=== PATIENT | female | born 1930 | race Caucasian/White ===

== ENCOUNTER 2016-10-31 23:21 | Inpatient (IN) | payer MEDICARE, BC, OTHER ==
--- NOTE | 2016-10-31 23:40 | ER Document Report ---
ED General - General Stated Complaint: CHEST PAIN Time seen by provider: 23:35 Notes: Patient is an 86-year-old female that comes emergency department for complaint of not feeling well for about 2 days and chest pain that started at about 10 PM tonight. Patient states the pain is over the left side near her armpit and is worse when she presses on it or when she moves. Patient was given 324 mg of aspirin and 1 nitroglycerin by EMS and route. Patient denies any radiations of pain, denies shortness of breath, denies nausea or vomiting, denies injury to the area. Patient denies fever, cough, shortness of breath, headache. Patient reports her only past medical history is stated to diabetes, she states she is taking her "insulin pill". She lives at home with her . TRAVEL OUTSIDE OF THE [place] IN LAST 30 DAYS: No - Related Data Allergies/Adverse Reactions: clopidogrel bisulfate [From Plavix] Allergy (Verified 09/18/14 23:07) Past Medical History - General Information source: Patient, Relative, Emergency Med Personnel - Social History Smoking Status: Never Smoker Frequency of alcohol use: None Drug Abuse: None Lives with: Family Family History: Reviewed & Not Pertinent, Other Endocrine Medical History: Reports: Hx Diabetes Mellitus Type 2 - Immunizations Hx Diphtheria, Pertussis, Tetanus Vaccination: Yes Review of Systems - Review of Systems Constitutional: See HPI EENT: No symptoms reported Cardiovascular: See HPI Respiratory: No symptoms reported Gastrointestinal: No symptoms reported Genitourinary: No symptoms reported Female Genitourinary: No symptoms reported Musculoskeletal: No symptoms reported Skin: No symptoms reported Hematologic/Lymphatic: No symptoms reported Neurological/Psychological: No symptoms reported Physical Exam - Vital signs Vitals: Pulse Ox 98 11/01/16 01:52 Interpretation: Normal - General General appearance: Appears well, Alert In distress: None - patient alert, well appearing - HEENT Head: Normocephalic, Atraumatic Eyes: Normal Conjunctiva: Normal Extraocular movements intact: Yes Eyelashes: Normal Pupils: PERRL Nasal: Normal Mouth/Lips: Normal Mucous membranes: Dry - dry lips and mucous membrane Pharynx: Normal Neck: Normal - Respiratory Respiratory status: No respiratory distress Chest status: Tender - specific reproduceable point tenderness over the lateral left pectoralis/breast and near the mid axillary region at ribs 3-4 Breath sounds: Normal Chest palpation: Normal - Cardiovascular Rhythm: Regular. No: Tachycardia Heart sounds: Normal auscultation, S1 appreciated, S2 appreciated Murmur: No - Abdominal Inspection: Normal Distension: No distension Bowel sounds: Normal Tenderness: Nontender. No: Tender, Guarding - Back Back: Normal, Nontender. No: Tender - Extremities General upper extremity: Normal inspection, Nontender, Normal color, Normal ROM , Normal temperature General lower extremity: Normal inspection, Nontender, Normal color, Normal ROM , Normal temperature, Normal weight bearing. No: Jean-Paul's sign - Neurological Neuro grossly intact: Yes Cognition: Normal Orientation: AAOx4 Allison Coma Scale Eye Opening: Spontaneous Allison Coma Scale Verbal: Oriented [place] Coma Scale Motor: Obeys Commands Allison Coma Scale Total: 15 Speech: Normal Motor strength normal: LUE, RUE, LLE, RLE Sensory: Normal - Psychological Associated symptoms: Normal affect, Normal mood - Skin Skin Temperature: Warm Skin Moisture: Dry Skin Color: Normal Course - Re-evaluation Re-evalutation: EKG shows sinus rhythm with no T wave inversions or ST segment abnormalities in consecutive leads, V2 with slight and borderline ST elevation, no reciprocal changes. Normal axis. Anterior T-waves somewhat pointed. Workup pending. 11/01/16 01:00 arrived, he states that patient has been lying in bed and not feeling well for about 2 days, however he denies vomiting, diarrhea, cough, or any other obvious symptoms. Her blood sugar has not been checked, her temperature has not been checked. Patient had not begun complaining of chest pain until tonight. Delay in obtaining blood due to difficulty in drawing patient's blood. CBC unremarkable, chemistry shows marked hyperglycemia at greater than 700, bicarbonate is normal, BUN is slightly elevated. Sodium and chloride are low, patient receiving IV fluid bolus, will place on insulin drip. Troponin indeterminate, will cycle. Patient has very specific, reproducible chest pain in the left lateral pectoralis/axillary area, denies any other symptoms, she does requests something for pain because the pain is intermittent, sharp, and worse with movement. Discussed with Dr. Song, recommends admission. went home, I called him, he states that he checked and they are actually out of insulin and she has not received any for a couple of days at least. 11/01/16 02:40 Called and spoke with patient's primary care provider, Dr. Pearl, he will admit to the hospital. - Vital Signs Vital signs: Temp Pulse Resp BP Pulse Ox 98 11/01/16 01:52 - Laboratory Result Diagrams: 11/01/16 01:05 11/01/16 01:05 Laboratory results interpreted by me: 11/01/16 11/01/16 01:05 01:05 Lymphocytes % 12.3 L Sodium 131.3 L Chloride 91 L BUN 22 H Est GFR ( Amer) 57 L Est GFR (Non-Af Amer) 47 L Glucose 734 H* Discharge - Discharge Clinical Impression: Weakness, Chest wall pain Hyperglycemia due to type 2 diabetes mellitus Qualifiers: Diabetes mellitus care home insulin use: unspecified care home insulin use status Qualified Code(s): E11.65 - Type 2 diabetes mellitus with hyperglycemia Chest pain Qualifiers: Chest pain type: unspecified Qualified Code(s): R07.9 - Chest pain, unspecified Condition: Stable Disposition: ADMITTED INPATIENT Admitting Provider: Dae Unit Admitted: Telemetry
[2016-11-01 01:28] LABS: ALANINE AMINOTRANSFERASE 25 U/L (9-52); ALBUMIN 3.7 g/dL (3.5-5.0); ALKALINE PHOSPHATASE 69 U/L (38-126); ANION GAP 11 (5-19); ASPARTATE AMINO TRANSFERASE 26 U/L (14-36); BILIRUBIN,TOTAL 0.8 mg/dL (0.2-1.3); BLOOD UREA NITROGEN 22 mg/dL (7-20); CALCIUM 9.8 mg/dL (8.4-10.2); CARBON DIOXIDE 29 mmol/L (22-30); CHLORIDE 91 mmol/L (98-107); CREATINE KINASE 103 U/L (30-135); CREATININE RESULT 1.09 mg/dL (0.52-1.25); POTASSIUM 4.6 mmol/L (3.6-5.0); SODIUM 131.3 mmol/L (137-145); TOTAL PROTEIN 6.9 g/dL (6.3-8.2)
[2016-11-01 01:32] LABS: ABSOLUTE BASOPHILS # (AUTO) 0.1 10^3/uL (0.0-0.2); ABSOLUTE LYMPHOCYTES (AUTO) 1.1 10^3/uL (0.5-4.7); ABSOLUTE MONOCYTES (AUTO) 0.8 10^3/uL (0.1-1.4); ABSOLUTE NEUT (AUTO) 6.8 10^3/uL (1.7-8.2); BASOPHILS % (AUTO) 0.8 % (0-2); EOSINOPHILS % (AUTO) 0.5 % (0-6); HEMOGLOBIN 14.4 g/dL (12.0-15.5); HGB HCT DIFFERENCE -0.8; LYMPHOCYTES % (AUTO) 12.3 % (13-45); MEAN CORPUSCULAR HEMOGLOBIN 29.4 pg (27.0-33.4); MEAN CORPUSCULAR HGB CONC 32.7 g/dL (32.0-36.0); MEAN CORPUSCULAR VOLUME 90 fl (80-97); MONOCYTES % (AUTO) 8.9 % (3-13); RED BLOOD COUNT 4.89 10^6/uL (3.72-5.28); RED CELL DISTRIBUTION WIDTH 13.3 % (11.5-14.0); SEGMENTED NEUTROPHILS % (AUTO) 77.5 % (42-78); WHITE BLOOD COUNT 8.8 10^3/uL (4.0-10.5)
[2016-11-01 01:39] LABS: GLUCOSE 734 mg/dL (75-110)
[2016-11-01 01:41] LABS: CREATINE KINASE MB 2.64 ng/mL (<4.55)
[2016-11-01 01:49] LABS: TROPONIN I 0.052 ng/mL
[2016-11-01] MEDS ORDERED: NORMAL SALINE 1000 ML 1,000 ML IV ONE (02:02)
[2016-11-01] MEDS ORDERED: NORMAL SALINE 100 ML with INSULIN REGULAR, HUMAN 100 UNIT IV PRN ×2 (02:04)
[2016-11-01] MEDS ORDERED: INSULIN REG, HUMAN 100 UNIT/ML 3 ML VIAL (PYX) ONE (02:24)
[2016-11-01] MEDS ORDERED: MORPHINE SULFATE 10 MG/ML INJ IV ONE ×2 (02:42→05:02)
[2016-11-01] MEDS ORDERED: ONDANSETRON HCL INJ/PF 4 MG/2 ML SDV IV ONE (02:43)
[2016-11-01 05:11] LABS: APPEARANCE,URINE CLEAR; BILIRUBIN,URINE NEGATIVE (NEGATIVE); GLUCOSE, URINE >=500 mg/dL (NEGATIVE); KETONES,URINE TRACE mg/dL (NEGATIVE); LEUKOCYTE ESTERASE,URINE NEGATIVE (NEGATIVE); NITRITE,URINE NEGATIVE (NEGATIVE); PROTEIN,URINE 30 mg/dL (NEGATIVE); URINE SPECIFIC GRAVITY 1.027; UROBILINOGEN,URINE NEGATIVE mg/dL (<2.0)
[2016-11-01] MEDS ORDERED: ENOXAPARIN SODIUM INJ 30 MG/0.3 ML DISP.SYRIN SUBCUT SCH (08:00)
[2016-11-01] MEDS ORDERED: ENOXAPARIN SODIUM INJ 40 MG/0.4 ML DISP.SYRIN SUBCUT SCH (08:00)
[2016-11-01] MEDS ORDERED: DEXTROSE 50%-WATER 25 GM/50 ML DISP.SYRIN IV PRN ×2 (08:19)
[2016-11-01] MEDS ORDERED: GLUCAGON,HUMAN RECOMB 1 MG INJ IM PRN (08:19)
[2016-11-01] MEDS ORDERED: DEXTROSE 40% GEL 15 GM TUBE PO PRN ×2 (08:19)
--- NOTE | 2016-11-01 08:20 | EKG REPORT ---
SEVERITY:- ABNORMAL ECG - SINUS RHYTHM CONSIDER ANTEROSEPTAL INFARCT : Confirmed by: Beto Rios MD 01-Nov-2016 08:19:59
--- NOTE | 2016-11-01 08:20 | EKG REPORT ---
SEVERITY:- ABNORMAL ECG - SINUS RHYTHM CONSIDER ANTEROSEPTAL INFARCT : Confirmed by: Beto Rios MD 01-Nov-2016 08:20:07
[2016-11-01 08:44] LABS: CREATINE KINASE MB 3.13 ng/mL (<4.55); TROPONIN I 0.063 ng/mL
[2016-11-01] MEDS: FAMOTIDINE INJ/PF 20 MG/2 ML SDV IV SCH ×2 (11:07→21:58)
[2016-11-01] MEDS: INSULIN LISPRO 100 UNIT/ML 3 ML VIAL SUBCUT PRN ×3 (11:46→21:55)
[2016-11-01] MEDS: NORMAL SALINE 1000 ML 1,000 ML IV PRN (11:46)
--- NOTE | 2016-11-01 12:36 | PDOC CONSULTATION ---
Consultation Consult Date: 11/01/16 Attending physician:: MARVEL JOE Consult reason:: Chest pain History of Present Illness Admission Date/PCP: 11/01/16 07:19 Patient complains of: Chest pain History of Present Illness: Patient is an 86-year-old female admitted through the emergency department for complaint of not feeling well for about 2 days and chest pain that started at about 10 PM last night. Patient states the pain is over the left side near her armpit and is worse when she presses on it or when she moves. Patient was given 324 mg of aspirin and 1 nitroglycerin by EMS and route. Patient denies any radiations of pain, denies shortness of breath, denies nausea or vomiting, denies injury to the area. Patient denies fever, cough, shortness of breath, headache. Patient reports her only past medical history is stated to diabetes, she states she is taking her "insulin pill". She lives at home with her . Patient denied any ongoing chest pain. Patient however seems to be a poor historian. She has noted some memory problems. Past Medical History Endocrine Medical History: Reports: Diabetes Mellitus Type 2 Social History Information Source: Patient Lives with: Family Smoking Status: Never Smoker Frequency of Alcohol Use: None Drugs: None - Advance Directive Resuscitation Status: Full Code Surrogate healthcare decision maker:: Patient's Family History Family History: Reviewed & Not Pertinent, Other Parental Family History Reviewed: Yes Children Family History Reviewed: Yes Sibling(s) Family History Reviewed.: Yes - Negative for premature coronary artery disease or sudden cardiac in the family amongst first degree relatives. Medication/Allergy Home Medications: Amlodipine Besylate [Norvasc 5 mg Tablet] 5 mg PO QHS 11/01/16 Aspirin [Aspirin 81 mg Chewable Tablet] 81 mg PO DAILY 11/01/16 Cholecalciferol (Vitamin D3) [Vitamin D3] 1,000 mg PO DAILY 11/01/16 Ferrous Sulfate [Feosol 325 mg Tablet] 325 mg PO DAILY 11/01/16 Insulin Aspart [Novolog Flexpen] 0 units SQ AC 11/01/16 Insulin Detemir [Levemir Flextouch] 10 units SQ DAILY 11/01/16 Levothyroxine Sodium [Synthroid 0.1 mg Tablet] 0.1 mg PO QAM 11/01/16 Propranolol HCl [Propranolol HCl ER] 80 mg PO DAILY 11/01/16 Rosuvastatin Calcium [Crestor 10 mg Tablet] 10 mg PO DAILY 11/01/16 Sitagliptin Phos/Metformin HCl [Janumet 50-1,000 mg Tablet] 1 tab PO BID Valsartan [Diovan 80 mg Tablet] 80 mg PO Q12 11/01/16 Allergies/Adverse Reactions: clopidogrel bisulfate [From Plavix] Allergy (Verified 09/18/14 23:07) Review of Systems Review of Systems: Please see history of present illness and past medical history as wall. Constitutional: No fever or chills reported. Generally not feeling well for last few days. Head : No recent chronic headaches, recent head injury. Eyes: No recent eye pain, diplopia, redness, discharge, acute visual changes. Ears: No recent chronic ear pain, acute hearing loss, ear discharge. Oral cavity: No recent ulcerations, bleeding, oral cavity discomfort. Neck: No recent acute neck pain reported. Hematologic: No recent easy bruising or bleeding or hematologic malignancy reported. Lymphatic: No recent lymphatic malignancy, chronic lymphadenopathy reported yet Cardiovascular system review: See history of present illness. Respiratory system review: No recent chronic cough, hemoptysis, blood clots in the lungs reported. Mild Shortness of breath on exertion Gastrointestinal system review: Negative for any recent acute or chronic abdominal pain, hematemesis, melena, recent change in bowel habits. Genitourinary system review: No recent acute or chronic hematuria, flank pain, UTI etc. reported. Skin system review: Negative for any recent abnormal bruising, no rash, no pruritus reported. Neurologic: No prior history of strokes, mini strokes, seizure disorder. Psychologic: No history of major psychosis or depression reported. Musculoskeletal: Minor aches and pains reported. No acute joint swelling reported. Endocrine: No recent polyuria, polydipsia, recent heat or cold intolerance. Physical Exam Vital Signs: Temp Pulse Resp BP Pulse Ox 14 135/85 H 99 11/01/16 12:00 11/01/16 12:00 11/01/16 12:00 Exam: GENERAL: well-nourished and in no acute distress. Alert and oriented 2 HEAD: Atraumatic, normocephalic. EYES: Pupils equal round and reactive to light, extraocular movements intact, sclera anicteric, conjunctiva are normal. ENT: TMs normal, nares patent, oropharynx clear without exudates. Moist mucous membranes. No oral ulcerations or bleeding gums noted NECK: supple without lymphadenopathy. Trachea is central. No cervical or axillary lymphadenopathy noted. Carotids are 2+, JVD WNL LUNGS: Respiration seems nonlabored, no significant accessory muscle action noted. Breath sounds clear to auscultation bilaterally and equal. No wheezes rales or rhonchi. No significant dullness noted on percussion. CHEST: Palpation of the chest wall shows left lateral chest wall tenderness but no other abnormalities. 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 ABDOMEN: Soft, no significant tenderness appreciated, normoactive bowel sounds. No guarding, no rebound. No rigidity noted . No masses appreciated. EXTREMITIES: Pedal pulses are 1-2+, no calf tenderness noted. No clubbing or cyanosis.trace to 1+ pedal edema noted NEUROLOGICAL: Focused neurological exam showed no significant neurologic deficit. Normal speech, no focal weakness appreciated. PSYCH: Normal mood, normal affect. Judgment and insight not checked SKIN: No significant ecchymosis, rash, ulcerations or signs of pruritus noted. MUSCULOSKELETAL EXAM: No significant joint swelling noted. Results Laboratory Results: 11/01/16 11/01/16 08:05 08:05 Creatine Kinase 150 H CK-MB (CK-2) 3.13 Troponin I 0.063 EKG Comments: Initial EKG showed suggestive of anteroseptal infarct, age indeterminate. Subsequent EKG same. No acute ST-T segment changes noted on second EKG. On first and borderline ST elevation in lead V1 and V2. Impressions: Chest X-Ray 10/31/16 23:38 IMPRESSION: NO ACUTE CARDIOPULMONARY PROCESS. NO SIGNIFICANT CHANGE FROM PRIOR STUDY. Assessment & Plan - Diagnosis (1) Chest pain Qualifiers: Chest pain type: unspecified Qualified Code(s): R07.9 - Chest pain, unspecified Is this a current diagnosis for this admission?: Yes (2) Diabetes type 2, uncontrolled Qualifiers: Diabetes mellitus complication status: with unspecified complications Is this a current diagnosis for this admission?: Yes (3) Hypertension Qualifiers: Hypertension type: essential hypertension Qualified Code(s): I10 - Essential (primary) hypertension Is this a current diagnosis for this admission?: Yes (4) Dyslipidemia Is this a current diagnosis for this admission?: Yes - Notes Notes: Chest pain: History is somewhat atypical. Patient does have some chest wall tenderness. Cardiac enzymes are noted to be negative for her age. At this point recommend optimizing medical therapy for presumed underlying CAD. A nuclear stress test can be considered as an outpatient. Will order and 2-D echo for risk stratification. Currently patient seems to be adequately treated. Diabetes: Currently uncontrolled with initial presentation with hyperglycemia and subsequently hypoglycemia. We will leave management to primary care M.D. Hypertension: Currently stable. Continue valsartan therapy. Dyslipidemia: Agree with Crestor therapy continue with it. Addendum: Patient was seen again at around 6 PM. She was noted to have positive troponin I, this was called to be after which I went up to see the patient. Patient started on beta maame by Dr. AROLDO CANO MD. Discussed with Dr. Joe. Have placed patient on Ranexa and also Lovenox at 0.75 mg per KG body weight twice a day. [place] that based on patient comorbid diagnosis of underlying dementia, difficult to control blood sugar, it was felt that we'll just optimize medical management. Also of note, elevated troponin I could be related to type II myocardial infarctions brought on by severe hyperglycemia and also severe hypoglycemia. However one cannot be very sure as patient is likely to have underlying CAD as well. - Time Time Spent: 50 to 70 Minutes - CODE STATUS was discussed, patient remains full code. Surrogate decision-maker patient's . Multiple medical problems were addressed.More than 50% of the time spent coordinating care, discussing management plans with involved caregivers. Management plans discussed with involved personnels. Medical decision making was of moderate complexity. Medications reviewed and adjusted accordingly: Yes
[2016-11-01 12:57] LABS: ANION GAP 12 (5-19); BLOOD UREA NITROGEN 20 mg/dL (7-20); CALCIUM 9.2 mg/dL (8.4-10.2); CARBON DIOXIDE 28 mmol/L (22-30); CHLORIDE 97 mmol/L (98-107); CREATINE KINASE 152 U/L (30-135); CREATININE RESULT 1.19 mg/dL (0.52-1.25); GLUCOSE 191 mg/dL (75-110); POTASSIUM 3.8 mmol/L (3.6-5.0); SODIUM 136.9 mmol/L (137-145)
--- NOTE | 2016-11-01 13:28 | PDOC H&P ---
History of Present Illness Admission Date/PCP: 11/01/16 07:19 History of Present Illness: Patient is an 86-year-old female admitted through the emergency department for complaint of not feeling well for about 2 days and chest pain that started at about 10 PM last night. Patient states the pain is over the left side near her armpit and is worse when she presses on it or when she moves. Patient was given 324 mg of aspirin and 1 nitroglycerin by EMS and route. Patient denies any radiations of pain, denies shortness of breath, denies nausea or vomiting, denies injury to the area. Patient denies fever, cough, shortness of breath, headache. Patient reports her only past medical history is stated to diabetes, she states she is taking her "insulin pill". She lives at home with her . Patient denied any ongoing chest pain. Patient however seems to be a poor historian. She has noted some memory problems. Past Medical History Endocrine Medical History: Reports: Diabetes Mellitus Type 2 Psychiatric Medical History: Reports: Dementia Social History Lives with: Family Smoking Status: Never Smoker Frequency of Alcohol Use: None Drugs: None - Advance Directive Resuscitation Status: Full Code Family History Family History: Reviewed & Not Pertinent, Other Parental Family History Reviewed: Yes Children Family History Reviewed: Yes Sibling(s) Family History Reviewed.: Yes Medication/Allergy Home Medications: Amlodipine Besylate [Norvasc 5 mg Tablet] 5 mg PO QHS 11/01/16 Aspirin [Aspirin 81 mg Chewable Tablet] 81 mg PO DAILY 11/01/16 Cholecalciferol (Vitamin D3) [Vitamin D3] 1,000 mg PO DAILY 11/01/16 Ferrous Sulfate [Feosol 325 mg Tablet] 325 mg PO DAILY 11/01/16 Insulin Aspart [Novolog Flexpen] 0 units SQ AC 11/01/16 Insulin Detemir [Levemir Flextouch] 10 units SQ DAILY 11/01/16 Levothyroxine Sodium [Synthroid 0.1 mg Tablet] 0.1 mg PO QAM 11/01/16 Propranolol HCl [Propranolol HCl ER] 80 mg PO DAILY 11/01/16 Rosuvastatin Calcium [Crestor 10 mg Tablet] 10 mg PO DAILY 11/01/16 Sitagliptin Phos/Metformin HCl [Janumet 50-1,000 mg Tablet] 1 tab PO BID Valsartan [Diovan 80 mg Tablet] 80 mg PO Q12 11/01/16 Allergies/Adverse Reactions: clopidogrel bisulfate [From Plavix] Allergy (Verified 09/18/14 23:07) Review of Systems Constitutional: ABSENT: chills, fever(s), headache(s), weight gain, weight loss Eyes: ABSENT: visual disturbances Ears: ABSENT: hearing changes Cardiovascular: PRESENT: chest pain. ABSENT: dyspnea on exertion, edema, orthropnea, palpitations Respiratory: ABSENT: cough, hemoptysis Gastrointestinal: ABSENT: abdominal pain, constipation, diarrhea, hematemesis, hematochezia, nausea, vomiting Genitourinary: ABSENT: dysuria, hematuria Musculoskeletal: ABSENT: joint swelling Integumentary: ABSENT: rash, wounds Neurological: ABSENT: abnormal gait, abnormal speech, confusion, dizziness, focal weakness, syncope Psychiatric: ABSENT: anxiety, depression, homidical ideation, suicidal ideation Endocrine: ABSENT: cold intolerance, heat intolerance, menstrual abnormalities, polydipsia, polyuria Hematologic/Lymphatic: ABSENT: easy bleeding, easy bruising, lymphadenopathy Physical Exam Vital Signs: Temp Pulse Resp BP Pulse Ox 98.3 F 14 135/85 H 97 11/01/16 12:28 11/01/16 12:00 11/01/16 12:00 11/01/16 12:30 General appearance: PRESENT: no acute distress, well-developed, well-nourished Head exam: PRESENT: atraumatic, normocephalic Eye exam: PRESENT: conjunctiva pink, EOMI, PERRLA. ABSENT: scleral icterus Ear exam: PRESENT: normal external ear exam Mouth exam: PRESENT: moist, tongue midline Neck exam: PRESENT: full ROM. ABSENT: carotid bruit, JVD, lymphadenopathy, thyromegaly Cardiovascular exam: PRESENT: RRR. ABSENT: diastolic murmur, rubs, systolic murmur Pulses: PRESENT: normal dorsalis pedis pul, +2 pedal pulses bilateral Vascular exam: PRESENT: normal capillary refill GI/Abdominal exam: PRESENT: normal bowel sounds, soft. ABSENT: distended, guarding, mass, organolmegaly, rebound, tenderness Rectal exam: PRESENT: deferred Neurological exam: PRESENT: alert, awake, oriented to place, CN II-XII grossly intact. ABSENT: motor sensory deficit Additional comments: Patient has significant underlying dementia Psychiatric exam: PRESENT: appropriate affect, normal mood. ABSENT: homicidal ideation, suicidal ideation Skin exam: PRESENT: dry, intact, warm. ABSENT: cyanosis, rash Results Laboratory Results: 11/01/16 12:22 11/01/16 12:22 Sodium 136.9 L Potassium 3.8 Chloride 97 L Carbon Dioxide 28 Anion Gap 12 BUN 20 Creatinine 1.19 Est GFR ( Amer) 52 L Est GFR (Non-Af Amer) 43 L Glucose 191 H Calcium 9.2 11/01/16 11/01/16 11/01/16 08:05 08:05 12:22 Creatine Kinase 150 H 152 H CK-MB (CK-2) 3.13 Troponin I 0.063 Impressions: Chest X-Ray 10/31/16 23:38 IMPRESSION: NO ACUTE CARDIOPULMONARY PROCESS. NO SIGNIFICANT CHANGE FROM PRIOR STUDY. Assessment & Plan - Diagnosis (1) Chest pain Qualifiers: Chest pain type: unspecified Qualified Code(s): R07.9 - Chest pain, unspecified Is this a current diagnosis for this admission?: YesPlan: We will get the cardiology consult and a cardiac enzymes every 63 (2) Diabetes type 2, uncontrolled Qualifiers: Diabetes mellitus complication status: with unspecified complications Is this a current diagnosis for this admission?: YesPlan: Patient is very noncompliance and the patient is also very noncompliant and very extensive discussions with the patient's family including the all the son and patient was also put in a chcf but patient's family does not want to keep in a chcf and according to the family patient's blood sugar always running high and I believe because of the patient is not taking medicines as prescribed and discussed the reasons and also patient is not watching the diet to (3) Dementia Qualifiers: Dementia type: unspecified type Dementia behavioral disturbance: without behavioral disturbance Qualified Code(s): F03.90 - Unspecified dementia without behavioral disturbance Is this a current diagnosis for this admission?: YesPlan: I think is significantly getting more worse (4) Hyperosmolar non-ketotic state in patient with type 2 diabetes mellitus Is this a current diagnosis for this admission?: YesPlan: Due to significant of the noncompliant will cut down the insulin drip to the sliding and the Levemir discussed with the ER nurse (5) Hypertension Qualifiers: Hypertension type: essential hypertension Qualified Code(s): I10 - Essential (primary) hypertension Is this a current diagnosis for this admission?: YesPlan: Stable (6) Hypothyroidism Is this a current diagnosis for this admission?: YesPlan: Check a TSH - Time Time Spent: 50 to 70 Minutes Medications reviewed and adjusted accordingly: Yes Anticipated discharge: Home - Inpatient Certification Medical Necessity: Significant Comorbidiites Make Outpatient Treatment Too Risky , Need For IV Fluids Post Hospital Care: D/C Language Specialist Documentation - Plan Summary Plan Summary: We will put the patient's back on a sliding scale and the regular insulin and current p.o. medication consult to cardiology. Discussed with the . As per note that patient's family we discussed extensively in the and they do not want to put back the patient in the chcf and will discharge the patient' s back [place] once again stable. Will get the physical therapy evaluation and also get a urine culture to rule out any urinary tract infection
[2016-11-01 16:30] LABS: CREATINE KINASE MB 6.31 ng/mL (<4.55)
[2016-11-01 16:44] LABS: TROPONIN I 0.625 ng/mL
[2016-11-01] MEDS: METFORMIN HCL 500 MG TABLET PO SCH (16:48)
[2016-11-01] MEDS: SITAGLIPTIN PHOSPHATE 50 MG TABLET PO SCH (16:48)
[2016-11-01] MEDS: METOPROLOL TARTRATE 25 MG TABLET PO SCH (17:52)
[2016-11-01] MEDS ORDERED: ASPIRIN 325 MG TABLET PO ONE (18:00)
[2016-11-01] MEDS ORDERED: (PENDING PHARMACY ID) (Sitagliptin Phos/Metformin Hcl [Janumet 50-1,000 Mg Tablet] 1 TAB) PO SCH (18:00)
[2016-11-01 20:32] LABS: CREATINE KINASE MB 7.91 ng/mL (<4.55)
[2016-11-01 20:53] LABS: TROPONIN I 0.92 ng/mL
[2016-11-01] MEDS: AMLODIPINE BESYLATE 5 MG TABLET PO SCH (21:53)
[2016-11-01] MEDS: ATORVASTATIN CALCIUM 20 MG TABLET PO SCH (21:54)
[2016-11-01] MEDS: RANOLAZINE 500 MG TAB.SR.12H PO SCH (21:54)
[2016-11-01] MEDS: ENOXAPARIN SODIUM INJ 40 MG/0.4 ML DISP.SYRIN SUBCUT SCH (22:00)
[2016-11-01] MEDS ORDERED: VALSARTAN 80 MG TABLET PO SCH (22:00)
[2016-11-01 23:48] LABS: APPEARANCE,URINE SLIGHTLY-CLOUDY; BILIRUBIN,URINE NEGATIVE (NEGATIVE); GLUCOSE, URINE >=500 mg/dL (NEGATIVE); KETONES,URINE TRACE mg/dL (NEGATIVE); LEUKOCYTE ESTERASE,URINE NEGATIVE (NEGATIVE); NITRITE,URINE NEGATIVE (NEGATIVE); PROTEIN,URINE 30 mg/dL (NEGATIVE); URINE SPECIFIC GRAVITY 1.017; UROBILINOGEN,URINE NEGATIVE mg/dL (<2.0)
[2016-11-02] MEDS: NORMAL SALINE 1000 ML 1,000 ML IV PRN (00:48)
[2016-11-02] MEDS: METOPROLOL TARTRATE 25 MG TABLET PO SCH ×2 (05:07→16:58)
[2016-11-02 05:15] LABS: ABSOLUTE BASOPHILS # (AUTO) 0.1 10^3/uL (0.0-0.2); ABSOLUTE EOSINOPHILS # (AUTO) 0.1 10^3/uL (0.0-0.6); ABSOLUTE LYMPHOCYTES (AUTO) 1.4 10^3/uL (0.5-4.7); ABSOLUTE MONOCYTES (AUTO) 0.6 10^3/uL (0.1-1.4); ABSOLUTE NEUT (AUTO) 5.3 10^3/uL (1.7-8.2); BASOPHILS % (AUTO) 1.1 % (0-2); EOSINOPHILS % (AUTO) 1.5 % (0-6); HEMATOCRIT 37.4 % (36.0-47.0); HEMOGLOBIN 12.7 g/dL (12.0-15.5); HGB HCT DIFFERENCE 0.7; LYMPHOCYTES % (AUTO) 19.1 % (13-45); MEAN CORPUSCULAR VOLUME 88 fl (80-97); MONOCYTES % (AUTO) 8.3 % (3-13); RED BLOOD COUNT 4.24 10^6/uL (3.72-5.28); RED CELL DISTRIBUTION WIDTH 13.4 % (11.5-14.0); WHITE BLOOD COUNT 7.6 10^3/uL (4.0-10.5)
[2016-11-02 05:29] LABS: ANION GAP 7 (5-19); BLOOD UREA NITROGEN 20 mg/dL (7-20); CALCIUM 8.7 mg/dL (8.4-10.2); CARBON DIOXIDE 23 mmol/L (22-30); CHLORIDE 104 mmol/L (98-107); CREATININE RESULT 1.18 mg/dL (0.52-1.25); GLUCOSE 288 mg/dL (75-110); POTASSIUM 4.5 mmol/L (3.6-5.0); SODIUM 133.5 mmol/L (137-145)
[2016-11-02] MEDS: LEVOTHYROXINE SODIUM 0.1 MG TABLET PO SCH (08:27)
[2016-11-02] MEDS: INSULIN LISPRO 100 UNIT/ML 3 ML VIAL SUBCUT PRN ×2 (08:27→12:19)
--- NOTE | 2016-11-02 08:44 | EKG REPORT ---
SEVERITY:- ABNORMAL ECG - SINUS RHYTHM LOW VOLTAGE IN FRONTAL LEADS CONSIDER ANTEROSEPTAL INFARCT : Confirmed by: Beto Rios MD 02-Nov-2016 08:44:26
[2016-11-02] MEDS ORDERED: (PENDING PHARMACY ID) (Propranolol Hcl [Propranolol Hcl Er] 80 MG) PO SCH (10:00)
[2016-11-02] MEDS ORDERED: INSULIN DETEMIR 100 UNIT/ML 3 ML PEN SUBCUT SCH (10:00)
[2016-11-02] MEDS: METFORMIN HCL 500 MG TABLET PO SCH ×2 (10:05→16:58)
[2016-11-02] MEDS: ASPIRIN 81 MG TABLET, CHEWABLE PO SCH (10:05)
[2016-11-02] MEDS: ENOXAPARIN SODIUM INJ 40 MG/0.4 ML DISP.SYRIN SUBCUT SCH ×2 (10:06→21:11)
[2016-11-02] MEDS: VALSARTAN 80 MG TABLET PO SCH (10:06)
[2016-11-02] MEDS: SITAGLIPTIN PHOSPHATE 50 MG TABLET PO SCH ×2 (10:06→16:58)
[2016-11-02] MEDS: RANOLAZINE 500 MG TAB.SR.12H PO SCH ×2 (10:06→21:10)
[2016-11-02] MEDS: FAMOTIDINE INJ/PF 20 MG/2 ML SDV IV SCH ×2 (10:06→21:11)
[2016-11-02] MEDS ORDERED: INSULIN DETEMIR 100 UNIT/ML 3 ML PEN SUBCUT ONE (12:30)
--- NOTE | 2016-11-02 13:31 | PDOC PROGRESS REPORT ---
Subjective Progress Note for:: 11/02/16 Subjective:: Patient seems to be doing better with gradual improvement. Pt is denying any chest arm or neck discomfort. Patient denying any PND, orthopnea. Patient denied any sustained palpitations, dizziness, syncope, near syncope. Patient denying any fever chills. Patient denying any other significant discomfort. Patient is maintaining sinus rhythm. Patient seems to be resting comfortably. She still has significant chest wall tenderness. Review of systems: Rest review of systems negative. Medications: Medications have been reviewed. Physical Exam Vital Signs: Temp Pulse Resp BP Pulse Ox 98.1 F 66 16 115/63 99 11/02/16 11:48 11/02/16 11:48 11/02/16 11:48 11/02/16 11:48 11/02/16 11:48 Intake & Output 11/01/16 11/02/16 11/03/16 06:59 06:59 06:59 Intake Total 1555 Balance 1555 Weight 51 kg Exam: GENERAL: well-nourished and in no acute distress. Alert and oriented 2 HEAD: Atraumatic, normocephalic. EYES: Pupils equal round and reactive to light, extraocular movements intact, sclera anicteric, conjunctiva are normal. ENT: TMs normal, nares patent, oropharynx clear without exudates. Moist mucous membranes. No oral ulcerations or bleeding gums noted NECK: supple without lymphadenopathy. Trachea is central. No cervical or axillary lymphadenopathy noted. Carotids are 2+, JVD WNL LUNGS: Respiration seems nonlabored, no significant accessory muscle action noted. Breath sounds clear to auscultation bilaterally and equal. No wheezes rales or rhonchi. No significant dullness noted on percussion. CHEST: Palpation of the chest wall shows left lateral chest wall tenderness but no other abnormalities. 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 ABDOMEN: Soft, no significant tenderness appreciated, normoactive bowel sounds. No guarding, no rebound. No rigidity noted . No masses appreciated. EXTREMITIES: Pedal pulses are 1-2+, no calf tenderness noted. No clubbing or cyanosis.trace to 1+ pedal edema noted NEUROLOGICAL: Focused neurological exam showed no significant neurologic deficit. Normal speech, no focal weakness appreciated. PSYCH: Normal mood, normal affect. Judgment and insight not checked SKIN: No significant ecchymosis, rash, ulcerations or signs of pruritus noted. MUSCULOSKELETAL EXAM: No significant joint swelling noted. Results Laboratory Results: 11/02/16 05:06 11/02/16 05:06 11/01/16 11/02/16 11/02/16 21:47 05:06 05:06 WBC 7.6 RBC 4.24 Hgb 12.7 Hct 37.4 MCV 88 MCH 30.0 MCHC 34.0 RDW 13.4 Plt Count 171 Seg Neutrophils % 70.0 Lymphocytes % 19.1 Monocytes % 8.3 Eosinophils % 1.5 Basophils % 1.1 Absolute Neutrophils 5.3 Absolute Lymphocytes 1.4 Absolute Monocytes 0.6 Absolute Eosinophils 0.1 Absolute Basophils 0.1 Sodium 133.5 L Potassium 4.5 Chloride 104 Carbon Dioxide 23 Anion Gap 7 BUN 20 Creatinine 1.18 Est GFR ( Amer) 52 L Est GFR (Non-Af Amer) 43 L Glucose 288 H Calcium 8.7 Urine Color YELLOW Urine Appearance SLIGHTLY-CLOUDY Urine pH 5.0 Ur Specific [place] 1.017 Urine Protein 30 H Urine Glucose (UA) >=500 H Urine Ketones TRACE H Urine Blood SMALL H Urine Nitrite NEGATIVE Ur Leukocyte Esterase NEGATIVE Urine WBC (Auto) 10 Urine RBC (Auto) 1 11/01/16 11/01/16 11/01/16 08:05 08:05 12:22 Creatine Kinase 150 H 152 H CK-MB (CK-2) 3.13 Troponin I 0.063 11/01/16 11/01/16 11/01/16 15:55 19:50 19:50 Creatine Kinase 309 H CK-MB (CK-2) 6.31 H 7.91 H Troponin I 0.625 0.920 EKG Comments: EKG from yesterday reviewed. Showed sinus rhythm with minor nonspecific T-wave inversion inferior lead. No acute ST segment changes are noted. Impressions: Chest X-Ray 10/31/16 23:38 IMPRESSION: NO ACUTE CARDIOPULMONARY PROCESS. NO SIGNIFICANT CHANGE FROM PRIOR STUDY. Assessment & Plan - Diagnosis (1) Elevated troponin I level Is this a current diagnosis for this admission?: Yes (2) Non-STEMI (non-ST elevated myocardial infarction) Is this a current diagnosis for this admission?: Yes (3) Chest pain Qualifiers: Chest pain type: unspecified Qualified Code(s): R07.9 - Chest pain, unspecified Is this a current diagnosis for this admission?: Yes (4) Diabetes type 2, uncontrolled Qualifiers: Diabetes mellitus complication status: with unspecified complications Is this a current diagnosis for this admission?: Yes (5) Hypertension Qualifiers: Hypertension type: essential hypertension Qualified Code(s): I10 - Essential (primary) hypertension Is this a current diagnosis for this admission?: Yes (6) Dyslipidemia Is this a current diagnosis for this admission?: Yes - Notes Notes: Elevated Troponin I: This is in the non-STEMI range. Most likely brought on by acute coronary syndrome versus hyperglycemia or hypoglycemia. Patient did have chest pain but no significant ST segment changes. In view of patient's significant comorbid diagnoses and dementia, we opted for medical management. Patient also has normal LVEF therefore is felt to be satisfactory candidate for medical management. Non-ST segment elevation myocardial infarction: Being managed medically in view of advanced age, dementia. Chest pain: Most likely musculoskeletal based on physical exam. Diabetes type II: Recommend good control. Currently coming under better control but initially was uncontrolled. Hypertension: Currently stable. Dyslipidemia: Continue statin therapy. - Time Time with patient: Greater than 35 minutes - CODE STATUS was discussed, patient remains full code. Surrogate decision-maker unchanged. Multiple medical problems were addressed.More than 50% of the time spent coordinating care, discussing management plans with involved caregivers. Management plans discussed with involved personnels. Medical decision making was of high complexity. Medications reviewed and adjusted accordingly: Yes
[2016-11-02] MEDS ORDERED: HALOPERIDOL LACTATE INJ 5 MG/1 ML VIAL IV ONE (17:49)
--- NOTE | 2016-11-02 18:07 | PDOC PROGRESS REPORT ---
Subjective Progress Note for:: 11/02/16 Subjective:: Patient continue to demonstrate episodes of worsening confusion so far today. Spouse and son at bedside did report issue with memory problem and occasionally out of it. She continue to express left sided chest pain with motion and remain reproducible to palpation. No observed associated diaphoresis, nausea or vomiting. Tolerating oral feeding. Not very compliant with usage of supplemental oxygen via nasal cannula due to her mental limitation. Physical Exam Vital Signs: Temp Pulse Resp BP Pulse Ox 97.5 F 87 16 140/71 H 99 11/02/16 15:37 11/02/16 15:37 11/02/16 15:37 11/02/16 15:37 11/02/16 15:37 Intake & Output 11/01/16 11/02/16 11/03/16 06:59 06:59 06:59 Intake Total 1555 750 Output Total 500 Balance 1555 250 Weight 51 kg General appearance: PRESENT: cooperative - but confused and not following instruction Head exam: PRESENT: atraumatic, normocephalic Eye exam: PRESENT: conjunctiva pink, EOMI Mouth exam: PRESENT: moist Neck exam: PRESENT: full ROM. ABSENT: carotid bruit, JVD, lymphadenopathy, thyromegaly Respiratory exam: ABSENT: accessory muscle use, chest wall tenderness, clear to auscultation alicia, crackles, decreased breath sounds, prolonged expiratory phas, rales, retraction, rhonchi, stridor, symmetrical, tachypnea, unlabored, wheezes , other Cardiovascular exam: PRESENT: RRR. ABSENT: diastolic murmur, rubs, systolic murmur GI/Abdominal exam: PRESENT: normal bowel sounds, soft. ABSENT: distended, guarding, mass, organolmegaly, rebound, tenderness Extremities exam: PRESENT: full ROM Musculoskeletal exam: PRESENT: deformity - due to multiple joints involvement with arthritis Neurological exam: PRESENT: altered - with demonstrable disorientation to person , place and time at the time of my evaluation Psychiatric exam: PRESENT: agitated Focused psych exam: PRESENT: delusional, restlessness Skin exam: PRESENT: dry, intact, warm. ABSENT: cyanosis, rash Results Laboratory Results: 11/02/16 05:06 11/02/16 05:06 11/01/16 11/02/16 11/02/16 21:47 05:06 05:06 WBC 7.6 RBC 4.24 Hgb 12.7 Hct 37.4 MCV 88 MCH 30.0 MCHC 34.0 RDW 13.4 Plt Count 171 Seg Neutrophils % 70.0 Lymphocytes % 19.1 Monocytes % 8.3 Eosinophils % 1.5 Basophils % 1.1 Absolute Neutrophils 5.3 Absolute Lymphocytes 1.4 Absolute Monocytes 0.6 Absolute Eosinophils 0.1 Absolute Basophils 0.1 Sodium 133.5 L Potassium 4.5 Chloride 104 Carbon Dioxide 23 Anion Gap 7 BUN 20 Creatinine 1.18 Est GFR ( Amer) 52 L Est GFR (Non-Af Amer) 43 L Glucose 288 H Calcium 8.7 Urine Color YELLOW Urine Appearance SLIGHTLY-CLOUDY Urine pH 5.0 Ur Specific [place] 1.017 Urine Protein 30 H Urine Glucose (UA) >=500 H Urine Ketones TRACE H Urine Blood SMALL H Urine Nitrite NEGATIVE Ur Leukocyte Esterase NEGATIVE Urine WBC (Auto) 10 Urine RBC (Auto) 1 11/01/16 11/01/16 11/01/16 08:05 08:05 12:22 Creatine Kinase 150 H 152 H CK-MB (CK-2) 3.13 Troponin I 0.063 11/01/16 11/01/16 11/01/16 15:55 19:50 19:50 Creatine Kinase 309 H CK-MB (CK-2) 6.31 H 7.91 H Troponin I 0.625 0.920 Impressions: Chest X-Ray 10/31/16 23:38 IMPRESSION: NO ACUTE CARDIOPULMONARY PROCESS. NO SIGNIFICANT CHANGE FROM PRIOR STUDY. Assessment & Plan - Diagnosis (1) Acute hyperactive delirium due to another medical condition Is this a current diagnosis for this admission?: NoPlan: Start on Haloperidol 0.5mg IM x 1 dose and subsequently maintain on Risperidol 0.25 mg p.o bid for delirium management. I will start on supplemental vitamin and electrolyte management. (2) Diabetes type 2, uncontrolled Qualifiers: Diabetes mellitus complication status: with unspecified complications Diabetes mellitus mcc insulin use: without mcc use Qualified Code(s): E11.8 - Type 2 diabetes mellitus with unspecified complications; E11.65 - Type 2 diabetes mellitus with hyperglycemia Is this a current diagnosis for this admission?: YesPlan: Maintain on current medication management with sliding scale humalog insulin coverage until assured adequate oral intake before change of her current regimen. (3) Non-STEMI (non-ST elevated myocardial infarction) Is this a current diagnosis for this admission?: YesPlan: Continue current medical management in view of her comorbidities and advanced age. (4) Dementia Qualifiers: Dementia type: unspecified type Dementia behavioral disturbance: without behavioral disturbance Qualified Code(s): F03.90 - Unspecified dementia without behavioral disturbance Is this a current diagnosis for this admission?: YesPlan: Maintain on current medication management. (5) Hypertension Qualifiers: Hypertension type: essential hypertension Qualified Code(s): I10 - Essential (primary) hypertension Is this a current diagnosis for this admission?: YesPlan: Continue current medication management. - Time Time Spent with patient: 25-34 minutes - Greater than 35 minutes - CODE STATUS was discussed, patient remains full code. Surrogate decision-maker unchanged. Multiple medical problems were addressed.More than 50% of the time spent coordinating care, discussing management plans with involved caregivers. Management plans discussed with involved personnels. Medical decision making was of high complexity. 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
[2016-11-02] MEDS: RISPERIDONE 0.25 MG TABLET PO SCH (19:48)
[2016-11-02] MEDS: AMLODIPINE BESYLATE 5 MG TABLET PO SCH (21:10)
[2016-11-02] MEDS: ATORVASTATIN CALCIUM 20 MG TABLET PO SCH (21:10)
[2016-11-03] MEDS ORDERED: BISACODYL 10 MG SUPP.RECT PR ONE (02:00)
[2016-11-03 05:48] LABS: ANION GAP 7 (5-19); BLOOD UREA NITROGEN 23 mg/dL (7-20); CALCIUM 8.4 mg/dL (8.4-10.2); CARBON DIOXIDE 22 mmol/L (22-30); CHLORIDE 105 mmol/L (98-107); CREATININE RESULT 1.29 mg/dL (0.52-1.25); GLUCOSE 110 mg/dL (75-110); POTASSIUM 4.1 mmol/L (3.6-5.0); SODIUM 134.1 mmol/L (137-145)
[2016-11-03] MEDS: METOPROLOL TARTRATE 25 MG TABLET PO SCH ×2 (06:42→17:17)
[2016-11-03] MEDS: ASPIRIN 81 MG TABLET, CHEWABLE PO SCH (09:21)
[2016-11-03] MEDS: ENOXAPARIN SODIUM INJ 40 MG/0.4 ML DISP.SYRIN SUBCUT SCH ×2 (09:21→21:27)
[2016-11-03] MEDS: VALSARTAN 80 MG TABLET PO SCH (09:21)
[2016-11-03] MEDS: SITAGLIPTIN PHOSPHATE 50 MG TABLET PO SCH ×2 (09:21→17:17)
[2016-11-03] MEDS: METFORMIN HCL 500 MG TABLET PO SCH ×2 (09:21→17:17)
[2016-11-03] MEDS: RISPERIDONE 0.25 MG TABLET PO SCH ×2 (09:21→17:17)
[2016-11-03] MEDS: INSULIN DETEMIR 100 UNIT/ML 3 ML PEN SUBCUT SCH (09:21)
[2016-11-03] MEDS: RANOLAZINE 500 MG TAB.SR.12H PO SCH ×2 (09:21→21:18)
[2016-11-03] MEDS: LEVOTHYROXINE SODIUM 0.1 MG TABLET PO SCH (09:21)
[2016-11-03] MEDS: FAMOTIDINE INJ/PF 20 MG/2 ML SDV IV SCH ×2 (09:22→21:20)
[2016-11-03] MEDS: NORMAL SALINE 1000 ML 1,000 ML with POTASSIUM CHLORIDE 20 MEQ, MAGNESIUM SULFATE 8 MEQ,... IV PRN ×5 (12:55)
[2016-11-03] MEDS: INSULIN LISPRO 100 UNIT/ML 3 ML VIAL SUBCUT PRN (13:53)
--- NOTE | 2016-11-03 14:18 | PDOC PROGRESS REPORT ---
Subjective Progress Note for:: 11/03/16 Subjective:: Patient seems to be doing better with gradual improvement. Patient has in sleeping a lot. She still has intermittent chest pain when awakened. Patient denying any PND, orthopnea. Patient denied any sustained palpitations, dizziness, syncope, near syncope. Patient denying any fever chills. Patient denying any other significant discomfort. Patient is maintaining sinus rhythm. Patient seems to be resting comfortably. She still has significant chest wall tenderness. Review of systems: Rest review of systems negative. Medications: Medications have been reviewed. Physical Exam Vital Signs: Temp Pulse Resp BP Pulse Ox 97.7 F 66 16 155/71 H 100 11/03/16 07:47 11/03/16 07:47 11/03/16 07:47 11/03/16 07:47 11/03/16 07:47 Intake & Output 11/02/16 11/03/16 11/04/16 06:59 06:59 06:59 Intake Total 1555 1681 Output Total 500 Balance 1555 1181 Weight 51 kg 51 kg Exam: GENERAL: well-nourished and in no acute distress. Patient is alert, oriented to place and person only not to time. Patient's somewhat lethargic secondary to possibly sedation. HEAD: Atraumatic, normocephalic. EYES: Pupils equal round and reactive to light, extraocular movements intact, sclera anicteric, conjunctiva are normal. ENT: TMs normal, nares patent, oropharynx clear without exudates. Moist mucous membranes. No oral ulcerations or bleeding gums noted NECK: supple without lymphadenopathy or JVD. Trachea is central. No cervical or axillary lymphadenopathy noted. Carotids are 2+ LUNGS: Breath sounds bibasilar fine crackles at bases. No significant dullness noted. CHEST: Palpation of chest wall shows no significant chest wall tenderness. 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 ABDOMEN: Soft, no significant tenderness appreciated, normoactive bowel sounds. No guarding, no rebound. No rigidity noted . No masses appreciated. EXTREMITIES: Pedal pulses are 1-2+, no calf tenderness noted, Trace + pedal edema noted. No clubbing or cyanosis. NEUROLOGICAL: Patient is alert but is not able to participate in neurological exam because of patient's current mental status PSYCH: Patient cannot participate in a neurologic and psych exam because of the patient's current mental status SKIN: No significant ecchymosis, rash, ulcerations or signs of pruritus noted. MUSCULOSKELETAL EXAM: No significant joint swelling noted. Results Laboratory Results: 11/02/16 05:06 11/03/16 04:57 11/03/16 04:57 Sodium 134.1 L Potassium 4.1 Chloride 105 Carbon Dioxide 22 Anion Gap 7 BUN 23 H Creatinine 1.29 H Est GFR ( Amer) 47 L Est GFR (Non-Af Amer) 39 L Glucose 110 Calcium 8.4 11/01/16 11/01/16 11/01/16 08:05 08:05 12:22 Creatine Kinase 150 H 152 H CK-MB (CK-2) 3.13 Troponin I 0.063 11/01/16 11/01/16 11/01/16 15:55 19:50 19:50 Creatine Kinase 309 H CK-MB (CK-2) 6.31 H 7.91 H Troponin I 0.625 0.920 Impressions: Chest X-Ray 10/31/16 23:38 IMPRESSION: NO ACUTE CARDIOPULMONARY PROCESS. NO SIGNIFICANT CHANGE FROM PRIOR STUDY. 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 These are now trending down. Patient has remained hemodynamically stable although intermittently confused. Most likely brought on by acute coronary syndrome versus hyperglycemia or hypoglycemia. Patient did have chest pain but no significant ST segment changes. In view of patient's significant comorbid diagnoses and dementia, we opted for medical management. Patient also has normal LVEF therefore is felt to be satisfactory candidate for medical management. Non-ST segment elevation myocardial infarction: Being managed medically in view of advanced age, dementia. Chest pain: Most likely musculoskeletal based on physical exam. Diabetes type II: Recommend good control. Currently coming under better control but initially was uncontrolled. Hypertension: Currently stable. Dyslipidemia: Continue statin therapy. Mental status changes and confusion: Probably related to underlying dementia. - Time Time with patient: Greater than 35 minutes - CODE STATUS was discussed, patient remains full code. Surrogate decision-maker unchanged. Multiple medical problems were addressed.More than 50% of the time spent coordinating care, discussing management plans with involved caregivers. Management plans discussed with involved personnels. Medical decision making was of moderate to high complexity.
--- NOTE | 2016-11-03 14:57 | PDOC PROGRESS REPORT ---
Subjective Progress Note for:: 11/03/16 Subjective:: Patient has been more amenable and cooperative with care since last clinical assessment. Spouse at bedside reported less confusion. No observed abdominal pain, nausea or vomiting. Tolerating oral feeding. No difficulty with breathing or expressed chest pain so far today. Physical Exam Vital Signs: Temp Pulse Resp BP Pulse Ox 97.7 F 66 16 155/71 H 100 11/03/16 07:47 11/03/16 07:47 11/03/16 07:47 11/03/16 07:47 11/03/16 07:47 Intake & Output 11/02/16 11/03/16 11/04/16 06:59 06:59 06:59 Intake Total 1555 1681 Output Total 500 Balance 1555 1181 Weight 51 kg 51 kg General appearance: PRESENT: no acute distress, cooperative Head exam: PRESENT: atraumatic, normocephalic Eye exam: PRESENT: conjunctiva pink, EOMI, PERRLA Mouth exam: PRESENT: moist Respiratory exam: ABSENT: accessory muscle use, chest wall tenderness, clear to auscultation alicia, crackles, decreased breath sounds, prolonged expiratory phas, rales, retraction, rhonchi, stridor, symmetrical, tachypnea, unlabored, wheezes , other Cardiovascular exam: PRESENT: RRR. ABSENT: diastolic murmur, rubs, systolic murmur GI/Abdominal exam: PRESENT: normal bowel sounds, soft. ABSENT: distended, guarding, mass, organolmegaly, rebound, tenderness Extremities exam: PRESENT: full ROM, tenderness - with motion across left shouder joint Musculoskeletal exam: PRESENT: deformity - due to multiple joints involvement by arthritis, tenderness - over left shoulder joint region Neurological exam: PRESENT: alert, awake Psychiatric exam: PRESENT: appropriate affect, normal mood. ABSENT: homicidal ideation, suicidal ideation Skin exam: PRESENT: dry, intact, warm. ABSENT: cyanosis, rash Results Laboratory Results: 11/02/16 05:06 11/03/16 04:57 11/03/16 04:57 Sodium 134.1 L Potassium 4.1 Chloride 105 Carbon Dioxide 22 Anion Gap 7 BUN 23 H Creatinine 1.29 H Est GFR ( Amer) 47 L Est GFR (Non-Af Amer) 39 L Glucose 110 Calcium 8.4 11/01/16 11/01/16 11/01/16 08:05 08:05 12:22 Creatine Kinase 150 H 152 H CK-MB (CK-2) 3.13 Troponin I 0.063 11/01/16 11/01/16 11/01/16 15:55 19:50 19:50 Creatine Kinase 309 H CK-MB (CK-2) 6.31 H 7.91 H Troponin I 0.625 0.920 Impressions: Chest X-Ray 10/31/16 23:38 IMPRESSION: NO ACUTE CARDIOPULMONARY PROCESS. NO SIGNIFICANT CHANGE FROM PRIOR STUDY. Assessment & Plan - Diagnosis (1) Acute hyperactive delirium due to another medical condition Is this a current diagnosis for this admission?: NoPlan: Maintain on Risperidol 0.25 mg p.o bid for delirium management. Discontinue supplemental vitamin and electrolyte management upon completion of today administration.. 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 (3) Non-STEMI (non-ST elevated myocardial infarction) Is this a current diagnosis for this admission?: YesPlan: Continue current medical management in view of her comorbidities and advanced age. (4) Dementia Qualifiers: Dementia type: unspecified type Dementia behavioral disturbance: without behavioral disturbance Qualified Code(s): F03.90 - Unspecified dementia without behavioral disturbance Is this a current diagnosis for this admission?: YesPlan: Maintain on current medication management. (5) Hypertension Qualifiers: Hypertension type: essential hypertension Qualified Code(s): I10 - Essential (primary) hypertension Is this a current diagnosis for this admission?: YesPlan: Continue current medication management. - Time Time Spent with patient: 25-34 minutes Anticipated discharge: Home with Homehealth Within: Other - Inpatient Certification Based on my medical assessment, after consideration of the patient's comorbidities, presenting symptoms, or acuity I expect that the services needed warrant INPATIENT care.: Yes I certify that my determination is in accordance with my understanding of Medicare's requirements for reasonable and necessary INPATIENT services [42 CFR 412.3e].: Yes Medical Necessity: Need For IV Fluids, Need for IV Antibiotics, Risk of Complication if Not Cared For in Hospital - Plan Summary Plan Summary: see covering physician's note.
[2016-11-03] MEDS: DOCUSATE SODIUM 100 MG CAPSULE PO SCH (17:16)
[2016-11-03] MEDS: AMLODIPINE BESYLATE 5 MG TABLET PO SCH (21:18)
[2016-11-03] MEDS: ATORVASTATIN CALCIUM 20 MG TABLET PO SCH (21:19)
[2016-11-03] MEDS: ACETAMINOPHEN 325 MG TABLET PO PRN (21:19)
[2016-11-04] MEDS: METOPROLOL TARTRATE 25 MG TABLET PO SCH ×2 (05:40→17:13)
[2016-11-04 06:08] LABS: HEMATOCRIT 38.7 % (36.0-47.0); HEMOGLOBIN 13.1 g/dL (12.0-15.5); HGB HCT DIFFERENCE 0.6; MEAN CORPUSCULAR HEMOGLOBIN 29.8 pg (27.0-33.4); MEAN CORPUSCULAR HGB CONC 33.8 g/dL (32.0-36.0); MEAN CORPUSCULAR VOLUME 88 fl (80-97); RED BLOOD COUNT 4.39 10^6/uL (3.72-5.28); RED CELL DISTRIBUTION WIDTH 13.7 % (11.5-14.0); WHITE BLOOD COUNT 6.6 10^3/uL (4.0-10.5)
[2016-11-04 06:28] LABS: ANION GAP 8 (5-19); BLOOD UREA NITROGEN 23 mg/dL (7-20); CALCIUM 8.6 mg/dL (8.4-10.2); CARBON DIOXIDE 21 mmol/L (22-30); CHLORIDE 108 mmol/L (98-107); CREATININE RESULT 1.23 mg/dL (0.52-1.25); GLUCOSE 94 mg/dL (75-110); POTASSIUM 4.5 mmol/L (3.6-5.0)
--- NOTE | 2016-11-04 08:22 | EKG REPORT ---
SEVERITY:- ABNORMAL ECG - SINUS RHYTHM LOW VOLTAGE IN FRONTAL LEADS CONSIDER ANTEROSEPTAL INFARCT : Confirmed by: Sinan Barbosa 04-Nov-2016 08:21:54
[2016-11-04] MEDS: LEVOTHYROXINE SODIUM 0.1 MG TABLET PO SCH (08:35)
[2016-11-04] MEDS: RANOLAZINE 500 MG TAB.SR.12H PO SCH ×2 (09:38→21:16)
[2016-11-04] MEDS: DOCUSATE SODIUM 100 MG CAPSULE PO SCH ×2 (09:38→17:13)
[2016-11-04] MEDS: SITAGLIPTIN PHOSPHATE 50 MG TABLET PO SCH ×2 (09:38→17:13)
[2016-11-04] MEDS: FAMOTIDINE INJ/PF 20 MG/2 ML SDV IV SCH ×2 (09:38→21:16)
[2016-11-04] MEDS: METFORMIN HCL 500 MG TABLET PO SCH ×2 (09:39→17:13)
[2016-11-04] MEDS: RISPERIDONE 0.25 MG TABLET PO SCH ×2 (09:39→17:13)
[2016-11-04] MEDS: VALSARTAN 80 MG TABLET PO SCH (09:39)
[2016-11-04] MEDS: ASPIRIN 81 MG TABLET, CHEWABLE PO SCH (09:39)
[2016-11-04] MEDS: INSULIN DETEMIR 100 UNIT/ML 3 ML PEN SUBCUT SCH (09:40)
[2016-11-04] MEDS: ENOXAPARIN SODIUM INJ 40 MG/0.4 ML DISP.SYRIN SUBCUT SCH ×2 (09:40→21:16)
--- NOTE | 2016-11-04 10:29 | PDOC PROGRESS REPORT ---
Subjective Progress Note for:: 11/04/16 Subjective:: Patient is doing fair very confused on and off. Since blood sugar under well control. Have a non-ST SD and patient is currently see a cardiology and only a medical management. Since denied any chest pain no shortness of the breath and no nursing concerns. Discussed with the and the bedside and also discussed with the son. Physical Exam Vital Signs: Temp Pulse Resp BP Pulse Ox 97.2 F 70 19 180/80 H 98 11/04/16 07:34 11/04/16 07:34 11/04/16 07:34 11/04/16 07:34 11/04/16 07:34 Intake & Output 11/03/16 11/04/16 11/05/16 06:59 06:59 06:59 Intake Total 1681 2160 Output Total 500 950 Balance 1181 1210 Weight 51 kg 51 kg General appearance: PRESENT: no acute distress, other - Very advanced dementia with confusion Head exam: PRESENT: normocephalic Eye exam: PRESENT: conjunctival injection Neck exam: PRESENT: full ROM Respiratory exam: PRESENT: clear to auscultation alicia Cardiovascular exam: PRESENT: +S1, +S2 GI/Abdominal exam: PRESENT: normal bowel sounds, soft. ABSENT: tenderness Extremities exam: ABSENT: pedal edema Neurological exam: PRESENT: alert, altered, awake Psychiatric exam: PRESENT: anxious Skin exam: PRESENT: dry Results Laboratory Results: 11/04/16 05:32 11/04/16 05:36 11/04/16 11/04/16 05:32 05:36 WBC 6.6 RBC 4.39 Hgb 13.1 Hct 38.7 MCV 88 MCH 29.8 MCHC 33.8 RDW 13.7 Plt Count 168 Sodium 137.0 Potassium 4.5 Chloride 108 H Carbon Dioxide 21 L Anion Gap 8 BUN 23 H Creatinine 1.23 Est GFR ( Amer) 50 L Est GFR (Non-Af Amer) 41 L Glucose 94 Calcium 8.6 11/01/16 11/01/16 11/01/16 08:05 08:05 12:22 Creatine Kinase 150 H 152 H CK-MB (CK-2) 3.13 Troponin I 0.063 11/01/16 11/01/16 11/01/16 15:55 19:50 19:50 Creatine Kinase 309 H CK-MB (CK-2) 6.31 H 7.91 H Troponin I 0.625 0.920 Impressions: Chest X-Ray 10/31/16 23:38 IMPRESSION: NO ACUTE CARDIOPULMONARY PROCESS. NO SIGNIFICANT CHANGE FROM PRIOR STUDY. 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 insulin Is this a current diagnosis for this admission?: YesPlan: All stable is probably from the noncompliance (3) Dementia Qualifiers: Dementia type: unspecified type Dementia behavioral disturbance: without behavioral disturbance Qualified Code(s): F03.90 - Unspecified dementia without behavioral disturbance Is this a current diagnosis for this admission?: YesPlan: Very advanced dementia (4) Hyperosmolar non-ketotic state in patient with type 2 diabetes mellitus Is this a current diagnosis for this admission?: YesPlan: All resolved (5) Hypertension Qualifiers: Hypertension type: essential hypertension Qualified Code(s): I10 - Essential (primary) hypertension Is this a current diagnosis for this admission?: YesPlan: Stable (6) Hypothyroidism Is this a current diagnosis for this admission?: YesPlan: Check a TSH (7) Non-STEMI (non-ST elevated myocardial infarction) Is this a current diagnosis for this admission?: YesPlan: Continues to medical management and follow with the cardiology - Time Time Spent with patient: 15-24 minutes Medications reviewed and adjusted accordingly: Yes Anticipated discharge: Home - Inpatient Certification Medical Necessity: Significant Comorbidiites Make Outpatient Treatment Too Risky Post Hospital Care: D/C Silk Printer Documentation - Plan Summary Plan Summary: Discussed with the and also discussed with the son and all prefer to take the patient home.
[2016-11-04] MEDS: INSULIN LISPRO 100 UNIT/ML 3 ML VIAL SUBCUT PRN ×2 (12:14→15:41)
--- NOTE | 2016-11-04 20:08 | PDOC PROGRESS REPORT ---
Subjective Progress Note for:: 11/04/16 Subjective:: Patient seems to be doing better with gradual improvement. Patient has been sleeping a lot. Patient today denied any chest pain. Patient denying any PND, orthopnea. Patient denied any sustained palpitations, dizziness, syncope, near syncope. Patient denying any fever chills. Patient denying any other significant discomfort. Patient is maintaining sinus rhythm. Patient seems to be resting comfortably. She still has significant chest wall tenderness. Review of systems: Rest review of systems negative. Medications: Medications have been reviewed. Physical Exam Vital Signs: Temp Pulse Resp BP Pulse Ox 97.4 F 95 20 135/63 H 99 11/04/16 19:38 11/04/16 19:38 11/04/16 19:38 11/04/16 19:38 11/04/16 19:38 Intake & Output 11/03/16 11/04/16 11/05/16 06:59 06:59 06:59 Intake Total 1681 2160 924 Output Total 500 950 Balance 1181 1210 924 Weight 51 kg 51 kg Exam: GENERAL: well-nourished and in no acute distress. Alert and oriented times 2 HEAD: Atraumatic, normocephalic. EYES: Pupils equal round and reactive to light, extraocular movements intact, sclera anicteric, conjunctiva are normal. ENT: TMs normal, nares patent, oropharynx clear without exudates. Moist mucous membranes. No oral ulcerations or bleeding gums noted NECK: supple without lymphadenopathy. Trachea is central. No cervical or axillary lymphadenopathy noted. Carotids are 2+, JVD WNL LUNGS: Respiration seems nonlabored, no significant accessory muscle action noted. Breath sounds clear to auscultation bilaterally and equal noted. No wheezes rales or rhonchi noted. No significant dullness noted on percussion. CHEST: Palpation of the chest wall shows left-sided significant chest wall tenderness. No other significant abnormalities noted. HEART: [place] INTERVENTIONAL RADIOLOGY RN, No PSH, 1/6 YOMI aortic area, 1/6 [place] systolic murmur mitral area, no rubs, no gallops. ABDOMEN: Soft, no significant tenderness appreciated, normoactive bowel sounds. No guarding, no rebound. No rigidity noted . No masses appreciated. EXTREMITIES: Pedal pulses are 1-2+, no calf tenderness noted. No clubbing or cyanosis.trace to 1+ pedal edema noted NEUROLOGICAL: Focused neurological exam showed no significant neurologic deficit. Normal speech, no focal weakness appreciated. PSYCH: Normal mood, normal affect. Judgment and insight within normal limits. SKIN: No significant ecchymosis, rash, ulcerations or signs of pruritus noted. MUSCULOSKELETAL EXAM: No significant joint swelling noted. Results Laboratory Results: 11/04/16 05:32 11/04/16 05:36 11/04/16 11/04/16 05:32 05:36 WBC 6.6 RBC 4.39 Hgb 13.1 Hct 38.7 MCV 88 MCH 29.8 MCHC 33.8 RDW 13.7 Plt Count 168 Sodium 137.0 Potassium 4.5 Chloride 108 H Carbon Dioxide 21 L Anion Gap 8 BUN 23 H Creatinine 1.23 Est GFR ( Amer) 50 L Est GFR (Non-Af Amer) 41 L Glucose 94 Calcium 8.6 11/01/16 11/01/16 11/01/16 08:05 08:05 12:22 Creatine Kinase 150 H 152 H CK-MB (CK-2) 3.13 Troponin I 0.063 11/01/16 11/01/16 11/01/16 15:55 19:50 19:50 Creatine Kinase 309 H CK-MB (CK-2) 6.31 H 7.91 H Troponin I 0.625 0.920 Impressions: Chest X-Ray 10/31/16 23:38 IMPRESSION: NO ACUTE CARDIOPULMONARY PROCESS. NO SIGNIFICANT CHANGE FROM PRIOR STUDY. Assessment & Plan - Diagnosis (1) Elevated troponin I level Is this a current diagnosis for this admission?: Yes (2) Non-STEMI (non-ST elevated myocardial infarction) Is this a current diagnosis for this admission?: Yes (3) Chest pain Qualifiers: Chest pain type: unspecified Qualified Code(s): R07.9 - Chest pain, unspecified Is this a current diagnosis for this admission?: Yes (4) Diabetes type 2, uncontrolled Qualifiers: Diabetes mellitus complication status: with unspecified complications Diabetes mellitus prison insulin use: without intermediate accountant use Qualified Code(s): E11.8 - Type 2 diabetes mellitus with unspecified complications; E11.65 - Type 2 diabetes mellitus with hyperglycemia; 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 These are now trending down. Patient has remained hemodynamically stable although intermittently confused. Most likely brought on by acute coronary syndrome versus hyperglycemia or hypoglycemia. In view of patient's significant comorbid diagnoses and dementia, we opted for medical management. Patient also has normal LVEF therefore is felt to be satisfactory candidate for medical management. I'm told that family do want to take patient's home Non-ST segment elevation myocardial infarction: Being managed medically in view of advanced age, dementia. Patient has done reasonably well. Chest pain: Most likely musculoskeletal based on physical exam. Diabetes type II: Recommend good control. Currently coming under better control but initially was uncontrolled. Hypertension: Currently stable. Dyslipidemia: Continue statin therapy. Mental status changes and confusion: Probably related to underlying dementia. Patient generally stable. Patient's medical regimen reviewed and is felt to be satisfactory. - Time Time with patient: 15-25 minutes - CODE STATUS was discussed, patient remains full code. Surrogate decision-maker unchanged. Multiple medical problems were addressed.More than 50% of the time spent coordinating care, discussing management plans with involved caregivers. Management plans discussed with involved personnels. Medical decision making was of moderate complexity.
[2016-11-04] MEDS: AMLODIPINE BESYLATE 5 MG TABLET PO SCH (21:16)
[2016-11-04] MEDS: ATORVASTATIN CALCIUM 20 MG TABLET PO SCH (21:16)
[2016-11-04 23:32] LABS: APPEARANCE,URINE CLEAR; BILIRUBIN,URINE NEGATIVE (NEGATIVE); GLUCOSE, URINE 50 mg/dL (NEGATIVE); KETONES,URINE NEGATIVE (NEGATIVE); LEUKOCYTE ESTERASE,URINE NEGATIVE (NEGATIVE); NITRITE,URINE NEGATIVE (NEGATIVE); PROTEIN,URINE NEGATIVE (NEGATIVE); URINE SPECIFIC GRAVITY 1.005; UROBILINOGEN,URINE NEGATIVE mg/dL (<2.0)
[2016-11-05] MEDS: NORMAL SALINE 1000 ML 1,000 ML with POTASSIUM CHLORIDE 20 MEQ, MAGNESIUM SULFATE 8 MEQ,... IV PRN ×5 (02:40)
[2016-11-05] MEDS: ACETAMINOPHEN 325 MG TABLET PO PRN (06:31)
[2016-11-05] MEDS: METOPROLOL TARTRATE 25 MG TABLET PO SCH ×2 (06:32→17:06)
[2016-11-05] MEDS: FAMOTIDINE INJ/PF 20 MG/2 ML SDV IV SCH ×2 (10:29→22:51)
[2016-11-05] MEDS: METFORMIN HCL 500 MG TABLET PO SCH ×2 (10:29→17:06)
[2016-11-05] MEDS: VALSARTAN 80 MG TABLET PO SCH (10:29)
[2016-11-05] MEDS: SITAGLIPTIN PHOSPHATE 50 MG TABLET PO SCH ×2 (10:29→17:05)
[2016-11-05] MEDS: LEVOTHYROXINE SODIUM 0.1 MG TABLET PO SCH (10:30)
[2016-11-05] MEDS: DOCUSATE SODIUM 100 MG CAPSULE PO SCH ×2 (10:30→17:06)
[2016-11-05] MEDS: ENOXAPARIN SODIUM INJ 40 MG/0.4 ML DISP.SYRIN SUBCUT SCH ×2 (10:30→22:51)
[2016-11-05] MEDS: RANOLAZINE 500 MG TAB.SR.12H PO SCH ×2 (10:30→22:50)
[2016-11-05] MEDS: RISPERIDONE 0.25 MG TABLET PO SCH ×2 (10:30→17:05)
[2016-11-05] MEDS: ASPIRIN 81 MG TABLET, CHEWABLE PO SCH (10:30)
[2016-11-05] MEDS: INSULIN DETEMIR 100 UNIT/ML 3 ML PEN SUBCUT SCH (10:31)
[2016-11-05] MEDS: INSULIN LISPRO 100 UNIT/ML 3 ML VIAL SUBCUT PRN ×2 (10:33→16:43)
--- NOTE | 2016-11-05 10:44 | PDOC PROGRESS REPORT ---
Subjective Progress Note for:: 11/05/16 Subjective:: Patient is doing same and no other events happen. Discussed with the son very extensively regarding the patient's current condition with advanced dementia and patient also have a dementia unable to take care at and agreeable to going to the nursing facility and will consult the social media marketer. According to the engineer operations and maintenance no change in continues the current medication Physical Exam Vital Signs: Temp Pulse Resp BP Pulse Ox 97.2 F 89 22 H 155/77 H 100 11/04/16 23:34 11/05/16 02:00 11/04/16 23:34 11/04/16 23:34 11/04/16 23:34 Intake & Output 11/04/16 11/05/16 11/06/16 06:59 06:59 06:59 Intake Total 2160 2004 Output Total 950 350 Balance 1210 1654 Weight 51 kg 58.1 kg General appearance: PRESENT: no acute distress, other - Advanced dementia Head exam: PRESENT: normocephalic Eye exam: PRESENT: PERRLA Mouth exam: PRESENT: neck supple Respiratory exam: PRESENT: clear to auscultation alicia Cardiovascular exam: PRESENT: +S1, +S2 GI/Abdominal exam: PRESENT: normal bowel sounds, soft. ABSENT: tenderness Extremities exam: ABSENT: pedal edema Neurological exam: PRESENT: alert, altered Psychiatric exam: PRESENT: anxious Results Laboratory Results: 11/04/16 05:32 11/04/16 05:36 11/04/16 11/04/16 22:38 23:15 Urine Color YELLOW Urine Appearance CLEAR Urine pH 5.0 Ur Specific [place] 1.005 Urine Protein NEGATIVE Urine Glucose (UA) 50 H Urine Ketones NEGATIVE Urine Blood NEGATIVE Urine Nitrite NEGATIVE Ur Leukocyte Esterase NEGATIVE Urine WBC (Auto) 1 Urine RBC (Auto) 0 Stool Occult Blood NEGATIVE 11/01/16 11/01/16 11/01/16 08:05 08:05 12:22 Creatine Kinase 150 H 152 H CK-MB (CK-2) 3.13 Troponin I 0.063 11/01/16 11/01/16 11/01/16 15:55 19:50 19:50 Creatine Kinase 309 H CK-MB (CK-2) 6.31 H 7.91 H Troponin I 0.625 0.920 Impressions: Chest X-Ray 10/31/16 23:38 IMPRESSION: NO ACUTE CARDIOPULMONARY PROCESS. NO SIGNIFICANT CHANGE FROM PRIOR STUDY. 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 ) 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 insulin Is this a current diagnosis for this admission?: YesPlan: All stable is probably from the noncompliance (3) Dementia Qualifiers: Dementia type: unspecified type Dementia behavioral disturbance: without behavioral disturbance Qualified Code(s): F03.90 - Unspecified dementia without behavioral disturbance Is this a current diagnosis for this admission?: YesPlan: Very advanced dementia (4) Hyperosmolar non-ketotic state in patient with type 2 diabetes mellitus Is this a current diagnosis for this admission?: YesPlan: All resolved (5) Hypertension Qualifiers: Hypertension type: essential hypertension Qualified Code(s): I10 - Essential (primary) hypertension Is this a current diagnosis for this admission?: YesPlan: Stable (6) Hypothyroidism Is this a current diagnosis for this admission?: YesPlan: Check a TSH (7) Non-STEMI (non-ST elevated myocardial infarction) Is this a current diagnosis for this admission?: YesPlan: Continues to medical management and follow with the cardiology - Time Time Spent with patient: 15-24 minutes Medications reviewed and adjusted accordingly: Yes Anticipated discharge: SNF Within: within 24 hours - Inpatient Certification Medical Necessity: Significant Comorbidiites Make Outpatient Treatment Too Risky Post Hospital Care: D/C Milling General Superintendent Documentation - Plan Summary Plan Summary: Discussed with the family and agreeable to sending the patient to the nursing
--- NOTE | 2016-11-05 14:33 | PDOC DISCHARGE SUMMARY ---
General - Admit/Disc Date/PCP Admission Date/Primary Care Provider: 11/01/16 07:19 Discharge Date: 11/05/16 - Discharge Diagnosis (1) Chest pain Is this a current diagnosis for this admission?: YesSummary: All resolved (2) Diabetes type 2, uncontrolled Is this a current diagnosis for this admission?: YesSummary: Most likely from noncompliance (3) Dementia Is this a current diagnosis for this admission?: YesSummary: Worsening the dementia (4) Hyperosmolar non-ketotic state in patient with type 2 diabetes mellitus Is this a current diagnosis for this admission?: YesSummary: All resolved (5) Hypertension Is this a current diagnosis for this admission?: YesSummary: Stable (6) Hypothyroidism Is this a current diagnosis for this admission?: YesSummary: Continues to current medication (7) Non-STEMI (non-ST elevated myocardial infarction) Is this a current diagnosis for this admission?: YesSummary: Medical management - Additional Information Resuscitation Status: Full Code Discharge Diet: Diabetic Discharge Activity: Activity As Tolerated Home Medications: Amlodipine Besylate [Norvasc 5 mg Tablet] 5 mg PO QHS 11/01/16 Aspirin [Aspirin 81 mg Chewable Tablet] 81 mg PO DAILY 11/01/16 Cholecalciferol (Vitamin D3) [Vitamin D3] 1,000 mg PO DAILY 11/01/16 Ferrous Sulfate [Feosol 325 mg Tablet] 325 mg PO DAILY 11/01/16 Insulin Aspart [Novolog Flexpen] 0 units SQ AC 11/01/16 Levothyroxine Sodium [Synthroid 0.1 mg Tablet] 0.1 mg PO QAM 11/01/16 Rosuvastatin Calcium [Crestor 10 mg Tablet] 10 mg PO DAILY 11/01/16 Valsartan [Diovan 80 mg Tablet] 80 mg PO Q12 11/01/16 Insulin Detemir [Levemir Flextouch] 10 units SQ DAILY #1 11/05/16 Metoprolol Tartrate [Lopressor 25 mg Tablet] 25 mg PO Q12A #60 tablet 11/05/16 Sitagliptin Phos/Metformin HCl [Janumet 50-1,000 mg Tablet] 1 tab PO BID #60 History of Present Illness History of Present Illness: Patient is an 86-year-old female admitted through the emergency department for complaint of not feeling well for about 2 days and chest pain that started at about 10 PM last night. Patient states the pain is over the left side near her armpit and is worse when she presses on it or when she moves. Patient was given 324 mg of aspirin and 1 nitroglycerin by EMS and route. Patient denies any radiations of pain, denies shortness of breath, denies nausea or vomiting, denies injury to the area. Patient denies fever, cough, shortness of breath, headache. Patient reports her only past medical history is stated to diabetes, she states she is taking her "insulin pill". She lives at home with her . Patient denied any ongoing chest pain. Patient however seems to be a poor historian. She has noted some memory problems. Hospital Course Hospital Course: This is a 86-year-old female with advanced dementia and lives with her and unable to take care of at home and patient's blood sugar is running high due to the noncompliance of the medication and not taking the medications as prescribed and patient's initial sugar was 700 and patient was put on the insulin drip patient was also complained with chest pain and patient's cardiac enzyme was positive and patient have a non-ST CT. Cardiology was consulted with advanced dementia and advanced age she is not a candidate for any cardiac intervention and only the medical management and discussed with the family agree about the. She has otherwise remained stable and continues to medical management and the patient's I think family unable to take care at home and very extensive discussions with the son and agreeable to sending the patient to the rehab. Several very poor prognosis with ongoing medical issues with advanced dementia and coronary disease and uncontrolled blood sugar. Physical Exam Vital Signs: Temp Pulse Resp BP Pulse Ox 97.6 F 72 18 136/67 H 97 11/05/16 11:21 11/05/16 11:21 11/05/16 11:21 11/05/16 11:21 11/05/16 11:21 Intake & Output 11/04/16 11/05/16 11/06/16 06:59 06:59 06:59 Intake Total 2160 2003 Output Total 066 350 Balance 1210 1654 Weight 51 kg 58.1 kg General appearance: PRESENT: no acute distress Head exam: PRESENT: normocephalic Eye exam: PRESENT: PERRLA Mouth exam: PRESENT: neck supple Respiratory exam: PRESENT: clear to auscultation alicia Cardiovascular exam: PRESENT: +S1, +S2 GI/Abdominal exam: PRESENT: normal bowel sounds, soft Extremities exam: ABSENT: pedal edema Neurological exam: PRESENT: alert, altered Psychiatric exam: PRESENT: anxious Skin exam: PRESENT: dry Results Laboratory Results: 11/04/16 05:32 11/04/16 05:36 11/04/16 11/04/16 22:38 23:15 Urine Color YELLOW Urine Appearance CLEAR Urine pH 5.0 Ur Specific [place] 1.005 Urine Protein NEGATIVE Urine Glucose (UA) 50 H Urine Ketones NEGATIVE Urine Blood NEGATIVE Urine Nitrite NEGATIVE Ur Leukocyte Esterase NEGATIVE Urine WBC (Auto) 1 Urine RBC (Auto) 0 Stool Occult Blood NEGATIVE 11/01/16 11/01/16 11/01/16 08:05 08:05 12:22 Creatine Kinase 150 H 152 H CK-MB (CK-2) 3.13 Troponin I 0.063 11/01/16 11/01/16 11/01/16 15:55 19:50 19:50 Creatine Kinase 309 H CK-MB (CK-2) 6.31 H 7.91 H Troponin I 0.625 0.920 Impressions: Chest X-Ray 10/31/16 23:38 IMPRESSION: NO ACUTE CARDIOPULMONARY PROCESS. NO SIGNIFICANT CHANGE FROM PRIOR STUDY. Plan Time Spent: Greater than 30 Minutes - Patient is discharged to the nursing according to the son discussed in the past and was taking the all this a dementia medication but it never works and patients at this point is to discharge with the above medication and may be a consider to put the medication the nursing about the risperidone as needed for the agitation and if the family agree may be a consider to put the Namenda or Exelon patch. Patient need a fall precautions and also need aspirations precautions
[2016-11-05] MEDS: AMLODIPINE BESYLATE 5 MG TABLET PO SCH (22:50)
[2016-11-05] MEDS: ATORVASTATIN CALCIUM 20 MG TABLET PO SCH (22:50)
--- NOTE | 2016-11-05 22:57 | PDOC PROGRESS REPORT ---
Subjective Progress Note for:: 11/05/16 Subjective:: Patient seen last time prior to discharge at the request of PMD. This was mainly to review medications. Patient more alert today and less sleepy. Patient today denied any chest pain. Patient denying any PND, orthopnea. Patient denied any sustained palpitations, dizziness, syncope, near syncope. Patient denying any fever chills. Patient denying any other significant discomfort. Patient is maintaining sinus rhythm. Patient seems to be resting comfortably. She still has significant chest wall tenderness. Review of systems: Rest review of systems negative. Medications: Medications have been reviewed. Physical Exam Vital Signs: Temp Pulse Resp BP Pulse Ox 97.3 F 72 16 110/59 L 97 11/05/16 15:22 11/05/16 15:22 11/05/16 15:22 11/05/16 15:22 11/05/16 15:22 Intake & Output 11/04/16 11/05/16 11/06/16 06:59 06:59 06:59 Intake Total 2160 2004 1824 Output Total 950 350 200 Balance 1210 1654 1624 Weight 51 kg 58.1 kg Exam: GENERAL: well-nourished and in no acute distress. Alert and oriented 2 HEAD: Atraumatic, normocephalic. EYES: Pupils equal round and reactive to light, extraocular movements intact, sclera anicteric, conjunctiva are normal. ENT: TMs normal, nares patent, oropharynx clear without exudates. Moist mucous membranes. No oral ulcerations or bleeding gums noted NECK: supple without lymphadenopathy. Trachea is central. No cervical or axillary lymphadenopathy noted. Carotids are 2+, JVD WNL LUNGS: Respiration seems nonlabored, no significant accessory muscle action noted. Breath sounds clear to auscultation bilaterally and equal noted. No wheezes rales or rhonchi noted. No significant dullness noted on percussion. Left-sided chest wall tenderness noted. CHEST: Palpation of the chest wall shows a left-sided chest wall tenderness. No other significant abnormalities noted. HEART: Steele [employer], No PSH, 1/6 YOMI aortic area, 1/6 solis systolic murmur mitral area, no rubs, no gallops. ABDOMEN: Soft, no significant tenderness appreciated, normoactive bowel sounds. No guarding, no rebound. No rigidity noted . No masses appreciated. EXTREMITIES: Pedal pulses are 1-2+, no calf tenderness noted. No clubbing or cyanosis.trace to 1+ pedal edema noted NEUROLOGICAL: Focused neurological exam showed no significant neurologic deficit. Normal speech, no focal weakness appreciated. PSYCH: Normal mood, normal affect. Judgment and insight within normal limits. SKIN: No significant ecchymosis, rash, ulcerations or signs of pruritus noted. MUSCULOSKELETAL EXAM: No significant joint swelling noted. Results Laboratory Results: 11/04/16 05:32 11/04/16 05:36 11/04/16 11/04/16 22:38 23:15 Urine Color YELLOW Urine Appearance CLEAR Urine pH 5.0 Ur Specific Hathaway 1.005 Urine Protein NEGATIVE Urine Glucose (UA) 50 H Urine Ketones NEGATIVE Urine Blood NEGATIVE Urine Nitrite NEGATIVE Ur Leukocyte Esterase NEGATIVE Urine WBC (Auto) 1 Urine RBC (Auto) 0 Stool Occult Blood NEGATIVE 11/01/16 11/01/16 11/01/16 08:05 08:05 12:22 Creatine Kinase 150 H 152 H CK-MB (CK-2) 3.13 Troponin I 0.063 11/01/16 11/01/16 11/01/16 15:55 19:50 19:50 Creatine Kinase 309 H CK-MB (CK-2) 6.31 H 7.91 H Troponin I 0.625 0.920 Impressions: Chest X-Ray 10/31/16 23:38 IMPRESSION: NO ACUTE CARDIOPULMONARY PROCESS. NO SIGNIFICANT CHANGE FROM PRIOR STUDY. Assessment & Plan - Diagnosis (1) Elevated troponin I level Is this a current diagnosis for this admission?: Yes (2) Non-STEMI (non-ST elevated myocardial infarction) Is this a current diagnosis for this admission?: Yes (3) Chest pain Qualifiers: Chest pain type: unspecified Qualified Code(s): R07.9 - Chest pain, unspecified Is this a current diagnosis for this admission?: Yes (4) Diabetes type 2, uncontrolled Qualifiers: Diabetes mellitus complication status: with unspecified complications Diabetes mellitus skilled nursing insulin use: without skilled nursing use Qualified Code(s): E11.8 - Type 2 diabetes mellitus with unspecified complications; E11.65 - Type 2 diabetes mellitus with hyperglycemia; Z79.4 - claim professional (current ) use of insulin Is this a current diagnosis for this admission?: Yes (5) Hypertension Qualifiers: Hypertension type: essential hypertension Qualified Code(s): I10 - Essential (primary) hypertension Is this a current diagnosis for this admission?: Yes (6) Dyslipidemia Is this a current diagnosis for this admission?: Yes - Notes Notes: Patient has remained generally stable. Patient was managed medically for non- STEMI. She has done reasonably well. Her medications were reviewed. She has been on a stable regimen. Her blood pressure has been well controlled. Recommend statin therapy, beta maame therapy which she is on. At this point, seems patient is ready for discharge. Discussed with patient's . We'll be happy to follow her in the office if they desire. Patient is currently going to a rehabilitation center. Will sign off at this point. - Time Time with patient: 15-25 minutes - CODE STATUS was discussed, patient remains full code. Surrogate decision-maker unchanged. Multiple medical problems were addressed.More than 50% of the time spent coordinating care, discussing management plans with involved caregivers. Management plans discussed with involved personnels. Medical decision making was of moderate complexity.
[2016-11-06] MEDS: NORMAL SALINE 1000 ML 1,000 ML with POTASSIUM CHLORIDE 20 MEQ, MAGNESIUM SULFATE 8 MEQ,... IV PRN ×5 (03:14)
[2016-11-06] MEDS: METOPROLOL TARTRATE 25 MG TABLET PO SCH ×2 (05:22→17:40)
[2016-11-06 06:35] LABS: HEMATOCRIT 36.9 % (36.0-47.0); HEMOGLOBIN 12.4 g/dL (12.0-15.5); HGB HCT DIFFERENCE 0.3; MEAN CORPUSCULAR HEMOGLOBIN 29.9 pg (27.0-33.4); MEAN CORPUSCULAR HGB CONC 33.7 g/dL (32.0-36.0); MEAN CORPUSCULAR VOLUME 89 fl (80-97); RED BLOOD COUNT 4.15 10^6/uL (3.72-5.28); RED CELL DISTRIBUTION WIDTH 13.9 % (11.5-14.0); WHITE BLOOD COUNT 5.6 10^3/uL (4.0-10.5)
[2016-11-06 08:10] LABS: APPEARANCE,URINE CLEAR; BILIRUBIN,URINE NEGATIVE (NEGATIVE); GLUCOSE, URINE NEGATIVE (NEGATIVE); KETONES,URINE NEGATIVE (NEGATIVE); LEUKOCYTE ESTERASE,URINE NEGATIVE (NEGATIVE); NITRITE,URINE NEGATIVE (NEGATIVE); PROTEIN,URINE NEGATIVE (NEGATIVE); URINE SPECIFIC GRAVITY 1.009; UROBILINOGEN,URINE NEGATIVE mg/dL (<2.0)
[2016-11-06] MEDS: LEVOTHYROXINE SODIUM 0.1 MG TABLET PO SCH (09:43)
[2016-11-06] MEDS: RISPERIDONE 0.25 MG TABLET PO SCH ×2 (09:43→17:40)
[2016-11-06] MEDS: DOCUSATE SODIUM 100 MG CAPSULE PO SCH ×2 (09:43→17:40)
[2016-11-06] MEDS: FAMOTIDINE INJ/PF 20 MG/2 ML SDV IV SCH ×2 (09:43→22:48)
[2016-11-06] MEDS: RANOLAZINE 500 MG TAB.SR.12H PO SCH ×2 (09:43→22:48)
[2016-11-06] MEDS: METFORMIN HCL 500 MG TABLET PO SCH ×2 (09:43→17:40)
[2016-11-06] MEDS: ASPIRIN 81 MG TABLET, CHEWABLE PO SCH (09:44)
[2016-11-06] MEDS: INSULIN DETEMIR 100 UNIT/ML 3 ML PEN SUBCUT SCH (09:45)
[2016-11-06] MEDS: ENOXAPARIN SODIUM INJ 40 MG/0.4 ML DISP.SYRIN SUBCUT SCH ×2 (09:46→22:49)
[2016-11-06] MEDS: VALSARTAN 80 MG TABLET PO SCH (09:48)
[2016-11-06] MEDS: SITAGLIPTIN PHOSPHATE 50 MG TABLET PO SCH ×2 (09:48→17:40)
[2016-11-06] MEDS: ATORVASTATIN CALCIUM 20 MG TABLET PO SCH (22:48)
[2016-11-06] MEDS: AMLODIPINE BESYLATE 5 MG TABLET PO SCH (22:49)
[2016-11-07] MEDS: METOPROLOL TARTRATE 25 MG TABLET PO SCH (05:55)
[2016-11-07 08:10] VITALS: BP 152/69
== END 2016-11-07 08:32 | DRG 280 ==
LOC: ER 23:21 → EH 11-01 02:45 → UNDOADMIN 11-01 02:45 → EH 11-01 07:19 → 3S 11-01 13:27
PROVIDERS: ADMIT Family Medicine; ATTEND Family Medicine
DX: I21.4 Non-ST elevation (NSTEMI) myocardial infarction (principal); E11.00 Type 2 diabetes mellitus with hyperosmolarity without nonketotic hyperglycemic-hyperosmolar coma (NKHHC); R07.9 Chest pain, unspecified; E11.65 Type 2 diabetes mellitus with hyperglycemia; R41.0 Disorientation, unspecified; F03.90 Unspecified dementia, unspecified severity, without behavioral disturbance, psychotic disturbance, mood disturbance, and anxiety; I10 Essential (primary) hypertension; E03.9 Hypothyroidism, unspecified; E78.5 Hyperlipidemia, unspecified; Z79.4 Long term (current) use of insulin; Z91.14 Patient's other noncompliance with medication regimen
CPT/HCPCS: 36415; 71010; 80048; 80053; 81001; 82272; 82550; 82553; 82962; 84484; 85025; 85027; 87086; 93005; 93010; 93306; 99285; J1630; J1650; J1815; J2270; J2405; J3411; J3475; J3480; J3490; J7030; S0028

== ENCOUNTER 2016-11-11 19:19 | Emergency (ER) | payer MEDICARE, BC, OTHER ==
[2016-11-11] MEDS ORDERED: OXYCODONE-ACETAMINOPHEN 5-325 MG TABLET PO ONE (19:27)
[2016-11-11] MEDS ORDERED: MORPHINE SULFATE 10 MG/ML INJ IV PRN (20:10)
[2016-11-11] MEDS ORDERED: PROPOFOL INJ 200 MG/20 ML VIAL IV ONE (20:10)
--- NOTE | 2016-11-11 20:20 | ER Document Report ---
ED General - General Chief Complaint: Wrist Injury Stated Complaint: FALL,POSSIBLE WRIST INJURY Notes: Patient is an 86-year-old female with past history of dementia currently residing in a nursing facility who presents after falling on an outstretched left hand. Since that time she has had a constant, severe, throbbing pain to the left wrist. Pain is worsened by any attempt at moving the wrist. No prior history of similar injury to left wrist. She denies any weakness, numbness, or any additional injury. She is right-hand dominant. She has not seen her primary care doctor regarding today's concerns. TRAVEL OUTSIDE OF THE [place] IN LAST 30 DAYS: No - Related Data Allergies/Adverse Reactions: clopidogrel bisulfate [From Plavix] Allergy (Verified 09/18/14 23:07) Past Medical History - General Information source: Patient, Relative - Social History Smoking Status: Never Smoker Frequency of alcohol use: None Drug Abuse: None Lives with: Detention Family History: Reviewed & Not Pertinent, Other Endocrine Medical History: Reports: Hx Diabetes Mellitus Type 2 Psychiatric Medical History: Reports: Hx Dementia Denies: Hx Depression - Immunizations Hx Diphtheria, Pertussis, Tetanus Vaccination: Yes Review of Systems - Review of Systems Notes: Constitutional: Negative for fever. HENT: Negative for sore throat. Eyes: Negative for visual changes. Cardiovascular: Negative for chest pain. Respiratory: Negative for shortness of breath. Gastrointestinal: Negative for abdominal pain, vomiting or diarrhea. Genitourinary: Negative for dysuria. Musculoskeletal: Positive for left wrist pain Skin: Negative for rash. Neurological: Negative for headaches, weakness or numbness. 10 point ROS negative except as marked above and in HPI. Physical Exam - Vital signs Vitals: Temp Pulse Resp BP Pulse Ox 97.4 F 79 16 162/62 H 99 11/11/16 19:52 11/11/16 19:52 11/11/16 19:52 11/11/16 19:52 11/11/16 19:52 Interpretation: Hypertensive Notes: PHYSICAL EXAMINATION: GENERAL: Appears to be in pain, rocking back and forth in the bed HEAD: Atraumatic, normocephalic. EYES: Pupils equal round and reactive to light, extraocular movements intact, sclera anicteric, conjunctiva are normal. ENT: nares patent, no oral pharyngeal trauma. No hemotympanum, no Whitaker's sign , no raccoon eyes. NECK: No midline cervical spine tenderness. Patient able to move their head to 45 bilaterally without any discomfort. LUNGS: Breath sounds clear to auscultation bilaterally and equal. No wheezes rales or rhonchi. HEART: Regular rate and rhythm without murmurs. CHEST WALL: No ecchymosis over the chest wall. ABDOMEN: Soft, nontender, normoactive bowel sounds. No guarding, no rebound. No abdominal bruising EXTREMITIES: There is an obvious deformity of the left wrist. Capillary refill in all digits of the left hand is less than 2 seconds. RMU motor and sensory intact BACK: No midline spinal tenderness, step-offs, or deformities. NEUROLOGICAL: Face symmetric. Tongue protrudes midline. Extraocular motions intact. Pupils are 2 mm and equally reactive. Normal speech. 5 out of 5 strength in both the distal and proximal upper and lower extremities bilaterally. Sensation is grossly intact throughout. PSYCH: Oriented to person SKIN: Warm, Dry, normal turgor, no rashes or lesions noted. Course - Re-evaluation Re-evalutation: 11/11/16 20:20 Patient presents after a fall on an outstretched hand and has an obvious left wrist fracture. Forearm x-ray obtained for an unclear reason although does demonstrate a distal radius fracture. Procedural sedation will be performed and the wrist will be reduced. Patient is neurovascularly intact prior to reduction at this time. She did not sustain any additional injury. 11/11/16 21:44 Left wrist fracture has been reduced under propofol sedation without difficulty. Sugar tong split is in place. Much improved alignment on postreduction x-ray. Patient remains neurovascularly intact. She will be discharged with orthopedic surgical follow-up. At this time will discharge with return precautions and follow-up recommendations. Verbal discharge instructions given a the bedside and opportunity for questions given. Medication warnings reviewed. Patient is in agreement with this plan and has verbalized understanding of return precautions and the need for primary care follow-up in the next 24-72 hours. - Vital Signs Vital signs: Temp Pulse Resp BP Pulse Ox 97.4 F 79 17 134/95 H 97 11/11/16 19:52 11/11/16 19:52 11/11/16 22:37 11/11/16 22:27 11/11/16 22:37 - Diagnostic Test Radiology reviewed: Image reviewed, Reports reviewed Radiology results interpreted by me: 11/11/16 21:44 Left wrist x-ray: Improved alignment of distal radius fracture Procedures - Conscious Sedation Conscious sedation Time started: 21:10 Time completed: 21:25 Consent obtained: Yes Indication: reduction of left wrist Prior complications: Procedural sedation Pt with a mild systemic disease.: P2. - ASA Classification. Airway Evaluation: Normal anatomy Mallampati Classification: Class 2 Used during procedure: Suction available, IV access obtained, Pulse ox on pt., bus monitor on pt. Medications administered: Diprivan Reversal agents: None I personally performed/intraservice time: Sedation, Procedure, 30 min or less Complications: No - Immobilization Left Wrist Time completed: 21:25 Pre-Proc Neuro Vasc Exam: Normal Immobilizer type: Sugar tong Performed by: Provider Post-Proc Neuro Vasc Exam: Normal Alignment checked and good: Yes - Joint Reduction/Fracture Care Left Wrist Time completed: 21:25 Consent obtained: Yes Conscious sedation: Yes Pre-procedure NV exam: Yes Fracture: Closed Manipulation comment: hyperextension and direct traction Post-procedure NV exam: Yes Post-reduction x-ray: Joint reduced Reduction attempts: 1 Complications: No Discharge - Discharge Clinical Impression: Distal radius fracture, left Qualifiers: Encounter type: initial encounter Fracture type: closed Fracture morphology: unspecified fracture morphology Qualified Code(s): S52.502A - Unspecified fracture of the lower end of left radius, initial encounter for closed fracture Condition: Fair Disposition: HOME, SELF-CARE Additional Instructions: You do have a left wrist fracture and need to follow-up with orthopedic surgery in the next 1 week. Keep the splint in place with the sling until you are seen by orthopedic surgery. For pain: Take acetaminophen 1000 mg every 6 hours. For pain that is not controlled by acetaminophen intake 2.5-5 mg of oxycodone was prescribed here in the emergency department. Return to the emergency department immediately if you have worsening of your pain, weakness, numbness, discoloration of the hand, or any additional concerns. Prescriptions: Oxycodone HCl 2.5 - 5 mg PO Q4HP PRN #20 tablet PRN Reason: Referrals: MATILDA BLEVINS MD [ACTIVE STAFF] - Follow up in 1 week
[2016-11-11 22:41] VITALS: BP 134/95
== END 2016-11-11 22:41 | disposition home or self-care (01) ==
LOC: ER 19:19
PROC: 0PSJXZZ Reposition Left Radius, External Approach (ICD-10-PCS; principal; 2016-11-11)
DX: S52.502A Unspecified fracture of the lower end of left radius, initial encounter for closed fracture (principal); W19.XXXA Unspecified fall, initial encounter
CPT/HCPCS: 99283; 96374; 73090; 73100; 25605; J2270; A9270; J2704

== ENCOUNTER 2016-11-25 17:42 | Observation (INO) | payer MEDICARE, BC, OTHER ==
--- NOTE | 2016-11-25 18:30 | ER Document Report ---
ED General - General Chief Complaint: Weakness Stated Complaint: WEAKNESS Time seen by provider: 18:00 Mode of Arrival: Medic Information source: Patient, Relative Notes: 86-year-old female who ordinarily resides at home with currently is in a [facility] for subacute rehabilitation after a fall with fracture to the left wrist. Patient was noted by son to have garbled speech and left facial droop about 5:00 this afternoon. Patient's blood sugar was checked and was found to be 74 and this was treated with orange juice. At approximately the same time the garbled speech and facial droop resolved and possibly 1725. [facility] personnel at already been called and [facility] requests the patient proceeded to emergency department for stroke evaluation. Son and reports she had no change in her mental status and they do not appreciate any didn't change in her speech or facial droop now. They reports she has been in normal state of health otherwise recently except for nonproductive cough last week that has since resolved patient has dementia and cannot provide useful history Physical Exam: General: Alert, appears well. HEENT: Normocephalic. Atraumatic. PERRLA. Extraocular movements intact. Oropharynx clear. Neck: Supple. Non-tender. Respiratory: No respiratory distress. Clear and equal breath sounds bilaterally. Cardiovascular: Regular rate and rhythm. Abdominal: Normal Inspection. Soft, non-tender. No distension. Normal Bowel Sounds. Back: Non-tender. No deformity or step off. Extremities: Moves all four extremities. Upper extremities: Normal inspection. Non-tender. Normal color. Normal ROM. Normal temperature. Short arm cast in place to left upper extremity. Brisk capillary refill noted to all fingers Lower extremities: Normal inspection. Non-tender. No edema. Normal color. Normal ROM. Normal temperature. Neurological: Speech clear. Cranial nerves III through XII intact. Motor function is intact to both upper extremities and 5 out of 5 allowing for difficulty testing correctional lieutenant strength to the cast in the left upper extremity. Motor function is 5 out of 5 and equal both lower extremities. Patient is oriented to person and place Psychological: Normal affect. Normal Mood. Skin: Warm. Dry. Normal color. TRAVEL OUTSIDE OF THE [place] IN LAST 30 DAYS: No - Related Data Allergies/Adverse Reactions: clopidogrel bisulfate [From Plavix] Allergy (Verified 09/18/14 23:07) Past Medical History - General Cannot obtain history due to: Dementia - Social History Smoking Status: Former Smoker Family History: Other - Patient could not provide due to dementia Endocrine Medical History: Reports: Hx Diabetes Mellitus Type 2 Psychiatric Medical History: Reports: Hx Dementia Denies: Hx Depression - Immunizations Hx Diphtheria, Pertussis, Tetanus Vaccination: Yes Review of Systems - Review of Systems Constitutional: denies: Chills, Fever EENT: denies: Ear pain, Throat pain Cardiovascular: denies: Chest pain, Dyspnea Respiratory: denies: Cough, Short of breath Gastrointestinal: denies: Abdominal pain, Vomiting Genitourinary: No symptoms reported Female Genitourinary: Post menopausal Musculoskeletal: denies: Back pain Skin: denies: Rash Hematologic/Lymphatic: denies: Swollen glands Neurological/Psychological: See HPI Physical Exam - Vital signs Vitals: Resp 19 11/25/16 18:08 Course - Re-evaluation Re-evalutation: 11/25/16 20:37 Approximately 1800 the patient had a return of her garbled speech and left facial droop that was witnessed at the [facility]. Patient was evaluated by myself at that time allowing for her dementia her neurologic exam was otherwise normal with 5 out of 5 motor function of both upper extremities and 5 out of 5 motor function of both lower extremities. I assessed the patient is not having deficits severe enough to warrant TPA particularly in view of her advanced age and dementia limiting the long-term benefit. Son and at the bedside are in agreement. After partially 5 minutes the patient's left facial droop and slurred speech improved at 30 examination approximately 2030 shows only minimal left facial droop. The patient has had some difficulty swallowing liquids with a challenge here and believe the patient would best be evaluated in the in hospital setting for her ambulatory and swallowing status. I discussed with family that the patient would not be a candidate for any other aggressive treatment for stroke. The patient's blood sugar at time of the return of her symptoms is 64 but it did not change with treatment. I discussed case with Dr. Rangel of the hospitalist service and he agrees to see the patient - Vital Signs Vital signs: Temp Pulse Resp BP Pulse Ox 27 H 126/61 H 100 11/25/16 19:01 11/25/16 19:01 11/25/16 19:01 - Laboratory Result Diagrams: 11/25/16 18:40 11/25/16 18:40 Laboratory results interpreted by me: 11/25/16 11/25/16 18:40 18:40 RDW 14.8 H Plt Count 454 H Sodium 136.8 L Potassium 5.1 H Chloride 97 L BUN 36 H Est GFR ( Amer) 49 L Est GFR (Non-Af Amer) 40 L Glucose 61 L Creatine Kinase 25 L - Diagnostic Test Radiology reviewed: Image reviewed, Reports reviewed - EKG Interpretation by Me Additional EKG results interpreted by me: 11/25/16 20:37 EKG reviewed by myself sinus rhythm at 82 no acute changes Discharge - Discharge Clinical Impression: Cerebrovascular accident (CVA) Qualifiers: CVA mechanism: unspecified Qualified Code(s): I63.9 - Cerebral infarction, unspecified Condition: Fair Disposition: ADMITTED OBSERVATION Admitting Provider: Hospitalist Unit Admitted: Telemetry
[2016-11-25 19:10] LABS: PROTHROMBIN TIME 12.3 SEC (11.4-15.4)
[2016-11-25 19:11] LABS: PARTIAL THROMBOPLASTIN TIME 27.6 SEC (23.5-35.8)
[2016-11-25 19:16] LABS: ABSOLUTE BASOPHILS # (AUTO) 0.1 10^3/uL (0.0-0.2); ABSOLUTE EOSINOPHILS # (AUTO) 0.1 10^3/uL (0.0-0.6); ABSOLUTE LYMPHOCYTES (AUTO) 2.1 10^3/uL (0.5-4.7); ABSOLUTE MONOCYTES (AUTO) 0.7 10^3/uL (0.1-1.4); ABSOLUTE NEUT (AUTO) 6.4 10^3/uL (1.7-8.2); BASOPHILS % (AUTO) 1.1 % (0-2); EOSINOPHILS % (AUTO) 1.3 % (0-6); HEMATOCRIT 37.5 % (36.0-47.0); HEMOGLOBIN 12.6 g/dL (12.0-15.5); HGB HCT DIFFERENCE 0.3; LYMPHOCYTES % (AUTO) 22.3 % (13-45); MEAN CORPUSCULAR HEMOGLOBIN 29.3 pg (27.0-33.4); MEAN CORPUSCULAR HGB CONC 33.5 g/dL (32.0-36.0); MEAN CORPUSCULAR VOLUME 88 fl (80-97); MONOCYTES % (AUTO) 7.7 % (3-13); RED BLOOD COUNT 4.29 10^6/uL (3.72-5.28); RED CELL DISTRIBUTION WIDTH 14.8 % (11.5-14.0); SEGMENTED NEUTROPHILS % (AUTO) 67.6 % (42-78); WHITE BLOOD COUNT 9.5 10^3/uL (4.0-10.5)
[2016-11-25 19:35] LABS: ALANINE AMINOTRANSFERASE 20 U/L (9-52); ALBUMIN 3.8 g/dL (3.5-5.0); ALKALINE PHOSPHATASE 54 U/L (38-126); ANION GAP 14 (5-19); ASPARTATE AMINO TRANSFERASE 22 U/L (14-36); BILIRUBIN,TOTAL 0.5 mg/dL (0.2-1.3); BLOOD UREA NITROGEN 36 mg/dL (7-20); CALCIUM 10.1 mg/dL (8.4-10.2); CARBON DIOXIDE 26 mmol/L (22-30); CHLORIDE 97 mmol/L (98-107); CREATINE KINASE 25 U/L (30-135); CREATININE RESULT 1.25 mg/dL (0.52-1.25); GLUCOSE 61 mg/dL (75-110); POTASSIUM 5.1 mmol/L (3.6-5.0); SODIUM 136.8 mmol/L (137-145); TOTAL PROTEIN 6.4 g/dL (6.3-8.2)
[2016-11-25 19:47] LABS: CREATINE KINASE MB 0.82 ng/mL (<4.55)
[2016-11-25 19:49] LABS: TROPONIN I < 0.012 ng/mL
[2016-11-25 19:57] LABS: APPEARANCE,URINE CLEAR; BILIRUBIN,URINE NEGATIVE (NEGATIVE); GLUCOSE, URINE NEGATIVE (NEGATIVE); KETONES,URINE NEGATIVE (NEGATIVE); LEUKOCYTE ESTERASE,URINE NEGATIVE (NEGATIVE); NITRITE,URINE NEGATIVE (NEGATIVE); PROTEIN,URINE NEGATIVE (NEGATIVE); URINE SPECIFIC GRAVITY 1.017; UROBILINOGEN,URINE NEGATIVE mg/dL (<2.0)
[2016-11-25] MEDS ORDERED: ASPIRIN 81 MG TABLET, CHEWABLE PO ONE (20:33)
[2016-11-25] MEDS ORDERED: INSULIN LISPRO 100 UNIT/ML 3 ML VIAL SUBCUT PRN (20:37)
[2016-11-25] MEDS ORDERED: DOCUSATE SODIUM 100 MG CAPSULE PO PRN (20:37)
[2016-11-25] MEDS ORDERED: DEXTROSE 50%-WATER 25 GM/50 ML DISP.SYRIN IV PRN ×2 (20:37)
[2016-11-25] MEDS ORDERED: DEXTROSE 40% GEL 15 GM TUBE PO PRN ×2 (20:37)
[2016-11-25] MEDS ORDERED: GLUCAGON,HUMAN RECOMB 1 MG INJ IM PRN (20:37)
--- NOTE | 2016-11-25 20:48 | EKG REPORT ---
SEVERITY:- ABNORMAL ECG - SINUS RHYTHM LOW VOLTAGE IN FRONTAL LEADS CONSIDER ANTEROSEPTAL INFARCT : Confirmed by: Sinan Barbosa 25-Nov-2016 20:46:29
[2016-11-25] MEDS: ATORVASTATIN CALCIUM 80 MG TABLET PO SCH (23:02)
[2016-11-25] MEDS: AMLODIPINE BESYLATE 5 MG TABLET PO SCH (23:03)
[2016-11-26] MEDS ORDERED: LACTULOSE SYRUP 20 GM/30 ML UDCUP PO ONE (00:55)
[2016-11-26] MEDS: NORMAL SALINE 1000 ML 1,000 ML IV SCH ×2 (00:57→09:00)
[2016-11-26] MEDS: HEPARIN SOD (PORCINE) 5,000 UNIT/ML 1 ML SYRINGE SUBCUT SCH ×4 (00:58→21:53)
--- NOTE | 2016-11-26 01:06 | PDOC H&P ---
History of Present Illness Admission Date/PCP: 11/25/16 21:06 Patient complains of: No complaints History of Present Illness: IGNACIO TABARES is a 86 year old female who is a [facility] resident for dementia, left-sided wrist fracture and falls with a past medical history of type II diabetes, hypertension and hypothyroidism. Patient was in her usual state of health until noted by her son with garbled speech and a left facial droop Accu-Chek was 74 treated with orange juice, some speech deficits persisted she was brought to the emergency room for evaluation where she has returned to baseline, with sinus rhythm, family declining TPA but request observation. She herself is cheerful, wide awake alert oriented 1 denies complaints and believe she is at home. Evaluation of patient's medications include Barre. Past Medical History Cardiac Medical History: Reports: Hypertension Endocrine Medical History: Reports: Diabetes Mellitus Type 2 Psychiatric Medical History: Reports: Dementia Denies: Depression Social History Information Source: [facility] Records Lives with: [facility] Smoking Status: Former Smoker Frequency of Alcohol Use: None Hx Recreational Drug Use: No Drugs: None Hx Prescription Drug Abuse: No - Advance Directive Resuscitation Status: Do Not Resuscitate Family History Family History: Other - Patient could not provide due to dementia Parental Family History Reviewed: Yes - unobtainable Children Family History Reviewed: Yes - Unobtainable Sibling(s) Family History Reviewed.: Yes - Unobtainable Medication/Allergy Home Medications: Amlodipine Besylate [Norvasc 5 mg Tablet] 5 mg PO QHS 11/01/16 Aspirin [Aspirin 81 mg Chewable Tablet] 81 mg PO DAILY 11/01/16 Cholecalciferol (Vitamin D3) [Vitamin D3] 1,000 mg PO DAILY 11/01/16 Ferrous Sulfate [Feosol 325 mg Tablet] 325 mg PO DAILY 11/01/16 Levothyroxine Sodium [Synthroid 0.1 mg Tablet] 0.1 mg PO QAM 11/01/16 Insulin Detemir [Levemir Flextouch] 10 units SQ DAILY #1 11/05/16 Metoprolol Tartrate [Lopressor 25 mg Tablet] 25 mg PO Q12A #60 tablet 11/05/16 Sitagliptin Phos/Metformin HCl [Janumet 50-1,000 mg Tablet] 1 tab PO BID #60 Acetaminophen [Mapap] 1,000 mg PO Q6 11/25/16 Atorvastatin Calcium [Lipitor 40 mg Tablet] 40 mg PO QHS 11/25/16 Insulin Lispro [Humalog] 0 unit SQ ASDIR PRN 11/25/16 Oxycodone HCl 2.5 - 5 mg PO Q4HP PRN 11/25/16 Valsartan [Diovan 160 mg Tablet] 160 mg PO DAILY 11/25/16 Allergies/Adverse Reactions: clopidogrel bisulfate [From Plavix] Allergy (Verified 09/18/14 23:07) Review of Systems ROS unobtainable: Due to mental status Physical Exam Vital Signs: Temp Pulse Resp BP Pulse Ox 98.0 F 73 20 117/66 99 11/26/16 00:42 11/26/16 00:42 11/26/16 00:42 11/26/16 00:42 11/26/16 00:42 Intake & Output 11/24/16 11/25/16 11/26/16 11:59 11:59 11:59 Weight 52.3 kg General appearance: PRESENT: no acute distress, well-developed, well-nourished Head exam: PRESENT: atraumatic, normocephalic Eye exam: PRESENT: conjunctiva pink, EOMI, PERRLA. ABSENT: scleral icterus Ear exam: PRESENT: normal external ear exam Mouth exam: PRESENT: moist, tongue midline Neck exam: ABSENT: carotid bruit, JVD, lymphadenopathy, thyromegaly Respiratory exam: PRESENT: clear to auscultation alicia. ABSENT: rales, rhonchi, wheezes Cardiovascular exam: PRESENT: RRR. ABSENT: diastolic murmur, rubs, systolic murmur Pulses: PRESENT: normal dorsalis pedis pul Vascular exam: PRESENT: normal capillary refill GI/Abdominal exam: PRESENT: normal bowel sounds, soft. ABSENT: distended, guarding, mass, organolmegaly, rebound, tenderness Rectal exam: PRESENT: deferred Extremities exam: PRESENT: full ROM. ABSENT: calf tenderness, clubbing, pedal edema Neurological exam: PRESENT: alert, awake, oriented to person, oriented to place , oriented to time, oriented to situation, CN II-XII grossly intact. ABSENT: motor sensory deficit Psychiatric exam: PRESENT: appropriate affect, normal mood. ABSENT: homicidal ideation, suicidal ideation Skin exam: PRESENT: dry, intact, warm. ABSENT: cyanosis, rash Results Impressions: Chest X-Ray 11/25/16 17:48 IMPRESSION: NO ACUTE RADIOGRAPHIC FINDING IN THE CHEST. Head CT 11/25/16 17:48 IMPRESSION: Mild acute bilateral maxillary sinus disease. CHRONIC CHANGES OF ATROPHY AND MICROVASCULAR ISCHEMIA. NO ACUTE PROCESS. Assessment & Plan - Diagnosis (1) TIA (transient ischemic attack) Is this a current diagnosis for this admission?: YesPlan: Unfortunately patient is profoundly demented unable to provide history and no acute distress she is not a candidate for aggressive management and subsequently with be treated conservatively without imaging including full dose aspirin and statin avoiding hypotension, and attempt of swallow evaluation. Discontinue Vicodin as may have contributed to symptoms (2) Dementia Qualifiers: Dementia type: unspecified type Dementia behavioral disturbance: without behavioral disturbance Qualified Code(s): F03.90 - Unspecified dementia without behavioral disturbance Is this a current diagnosis for this admission?: YesPlan: Supportive care (3) Hypothyroidism Is this a current diagnosis for this admission?: YesPlan: Evaluate with TSH (4) Hyperkalemia Is this a current diagnosis for this admission?: YesPlan: Hyperkalemia likely secondary to constipation with conch current opiates without bowel regiment she'll receive lactulose and reevaluation of chemistry - Time Time Spent: 30 to 50 Minutes - Inpatient Certification Medical Necessity: Need Close Monitoring Due to Risk of Patient Decompensation
[2016-11-26 04:51] LABS: ABSOLUTE BASOPHILS # (AUTO) 0.1 10^3/uL (0.0-0.2); ABSOLUTE EOSINOPHILS # (AUTO) 0.1 10^3/uL (0.0-0.6); ABSOLUTE MONOCYTES (AUTO) 0.6 10^3/uL (0.1-1.4); ABSOLUTE NEUT (AUTO) 3.8 10^3/uL (1.7-8.2); BASOPHILS % (AUTO) 1.4 % (0-2); HEMATOCRIT 35.4 % (36.0-47.0); HEMOGLOBIN 11.9 g/dL (12.0-15.5); HGB HCT DIFFERENCE 0.3; LYMPHOCYTES % (AUTO) 29.8 % (13-45); MEAN CORPUSCULAR HEMOGLOBIN 29.6 pg (27.0-33.4); MEAN CORPUSCULAR HGB CONC 33.6 g/dL (32.0-36.0); MEAN CORPUSCULAR VOLUME 88 fl (80-97); MONOCYTES % (AUTO) 8.5 % (3-13); RED BLOOD COUNT 4.01 10^6/uL (3.72-5.28); RED CELL DISTRIBUTION WIDTH 14.8 % (11.5-14.0); SEGMENTED NEUTROPHILS % (AUTO) 58.3 % (42-78); WHITE BLOOD COUNT 6.6 10^3/uL (4.0-10.5)
[2016-11-26] MEDS: METOPROLOL TARTRATE 25 MG TABLET PO SCH ×2 (05:12→18:07)
[2016-11-26 05:16] LABS: ANION GAP 13 (5-19); BLOOD UREA NITROGEN 37 mg/dL (7-20); CALCIUM 9.5 mg/dL (8.4-10.2); CARBON DIOXIDE 22 mmol/L (22-30); CHLORIDE 102 mmol/L (98-107); CREATININE RESULT 1.12 mg/dL (0.52-1.25); GLUCOSE 104 mg/dL (75-110); POTASSIUM 4.9 mmol/L (3.6-5.0); SODIUM 136.7 mmol/L (137-145)
[2016-11-26] MEDS: LEVOTHYROXINE SODIUM 0.1 MG TABLET PO SCH (08:04)
[2016-11-26] MEDS: FERROUS SULFATE 325 MG TABLET PO SCH (09:08)
[2016-11-26] MEDS: ASPIRIN 81 MG TABLET, CHEWABLE PO SCH (09:08)
[2016-11-26] MEDS: VALSARTAN 160 MG TABLET PO SCH (09:08)
[2016-11-26] MEDS: INSULIN DETEMIR 100 UNIT/ML 3 ML PEN SUBCUT SCH (09:10)
[2016-11-26] MEDS ORDERED: (PENDING PHARMACY ID) (Sitagliptin Phos/Metformin Hcl [Janumet 50-1,000 Mg Tablet] 1 TAB) PO SCH (10:00)
[2016-11-26] MEDS ORDERED: INSULIN DETEMIR 100 UNIT/ML 3 ML PEN SUBCUT SCH (10:00)
--- NOTE | 2016-11-26 15:01 | PDOC PROGRESS REPORT ---
Subjective Progress Note for:: 11/26/16 Subjective:: The patient was seen earlier today on rounds. The patient denies any symptoms however she is demented. Son is present at the bedside and active in the patient's care. According to the son the patient is now at her baseline. Symptoms of facial droop and slurred speech have resolved. The patient has remained afebrile. Blood pressures have been in a good range. When prompted the patient voices no other concerns at this time. Review of systems: The rest of the review of systems is negative. Physical Exam Vital Signs: Temp Pulse Resp BP Pulse Ox 98.2 F 76 18 123/49 L 100 11/26/16 12:14 11/26/16 14:00 11/26/16 12:14 11/26/16 12:14 11/26/16 12:14 Intake & Output 11/24/16 11/25/16 11/26/16 23:59 23:59 23:59 Intake Total 868 Balance 868 Weight 53.6 kg General appearance: PRESENT: no acute distress, cooperative, thin Exam: Frail, chronically ill-appearing Head exam: PRESENT: atraumatic, normocephalic Eye exam: PRESENT: conjunctiva pink, EOMI, PERRLA. ABSENT: scleral icterus Ear exam: PRESENT: normal external ear exam Mouth exam: PRESENT: moist, tongue midline Neck exam: ABSENT: carotid bruit, JVD, lymphadenopathy, thyromegaly Respiratory exam: PRESENT: clear to auscultation alicia. ABSENT: rales, rhonchi, wheezes Cardiovascular exam: PRESENT: RRR. ABSENT: diastolic murmur, rubs, systolic murmur Pulses: PRESENT: normal dorsalis pedis pul Vascular exam: PRESENT: normal capillary refill GI/Abdominal exam: PRESENT: normal bowel sounds, soft. ABSENT: distended, guarding, mass, organolmegaly, rebound, tenderness Rectal exam: PRESENT: deferred Extremities exam: PRESENT: full ROM. ABSENT: calf tenderness, clubbing, pedal edema Neurological exam: PRESENT: alert, altered, awake, CN II-XII grossly intact. ABSENT: motor sensory deficit Psychiatric exam: PRESENT: other - DEmented. ABSENT: homicidal ideation, suicidal ideation Skin exam: PRESENT: dry, intact, warm. ABSENT: cyanosis, rash Results Laboratory Results: 11/26/16 04:26 11/26/16 04:26 11/26/16 11/26/16 04:26 04:26 WBC 6.6 RBC 4.01 Hgb 11.9 L Hct 35.4 L MCV 88 MCH 29.6 MCHC 33.6 RDW 14.8 H Plt Count 365 Seg Neutrophils % 58.3 Lymphocytes % 29.8 Monocytes % 8.5 Eosinophils % 2.0 Basophils % 1.4 Absolute Neutrophils 3.8 Absolute Lymphocytes 2.0 Absolute Monocytes 0.6 Absolute Eosinophils 0.1 Absolute Basophils 0.1 Sodium 136.7 L Potassium 4.9 Chloride 102 Carbon Dioxide 22 Anion Gap 13 BUN 37 H Creatinine 1.12 Est GFR ( Amer) 56 L Est GFR (Non-Af Amer) 46 L Glucose 104 Calcium 9.5 Impressions: Chest X-Ray 11/25/16 17:48 IMPRESSION: NO ACUTE RADIOGRAPHIC FINDING IN THE CHEST. Head CT 11/25/16 17:48 IMPRESSION: Mild acute bilateral maxillary sinus disease. CHRONIC CHANGES OF ATROPHY AND MICROVASCULAR ISCHEMIA. NO ACUTE PROCESS. Assessment & Plan - Diagnosis (1) TIA (transient ischemic attack) Qualifiers: Transient cerebral ischemia type: unspecified Qualified Code(s): G45.9 - Transient cerebral ischemic attack, unspecified Is this a current diagnosis for this admission?: YesPlan: Will obtain MRI and carotids the patient did have echo done last month. It appears the patient did have 50% stenosis bilaterally in 2013. Will continue high-dose statin and aspirin therapy. (2) Dementia Qualifiers: Dementia type: unspecified type Dementia behavioral disturbance: without behavioral disturbance Qualified Code(s): F03.90 - Unspecified dementia without behavioral disturbance Is this a current diagnosis for this admission?: YesPlan: The patient's mentation is at baseline. (3) Dyslipidemia Is this a current diagnosis for this admission?: Yes (4) Hypertension Qualifiers: Hypertension type: essential hypertension Qualified Code(s): I10 - Essential (primary) hypertension Is this a current diagnosis for this admission?: YesPlan: Will continue home medications. (5) Hypothyroidism Qualifiers: Hypothyroidism type: unspecified Qualified Code(s): E03.9 - Hypothyroidism, unspecified Is this a current diagnosis for this admission?: Yes (6) Diabetes mellitus type 2 in nonobese Is this a current diagnosis for this admission?: YesPlan: Will continue home medications well/skill coverage. - Time Time Spent with patient: 35 or more minutes Medications reviewed and adjusted accordingly: Yes Anticipated discharge: SNF Within: within 24 hours Disposition: The patient is a DO NOT RESUSCITATE DO NOT INTUBATE. Pending patient's symptomatology and diagnostic findings will reevaluate as needed.
[2016-11-26] MEDS: SITAGLIPTIN PHOSPHATE 50 MG TABLET PO SCH (16:19)
[2016-11-26] MEDS: METFORMIN HCL 500 MG TABLET PO SCH (16:19)
[2016-11-26] MEDS: ATORVASTATIN CALCIUM 80 MG TABLET PO SCH (21:53)
[2016-11-26] MEDS: AMLODIPINE BESYLATE 5 MG TABLET PO SCH (21:54)
[2016-11-27] MEDS ORDERED: ACETAMINOPHEN 325 MG TABLET PO PRN (01:56)
[2016-11-27] MEDS: HEPARIN SOD (PORCINE) 5,000 UNIT/ML 1 ML SYRINGE SUBCUT SCH ×2 (05:05→12:28)
[2016-11-27] MEDS: METOPROLOL TARTRATE 25 MG TABLET PO SCH (05:05)
[2016-11-27] MEDS: INSULIN DETEMIR 100 UNIT/ML 3 ML PEN SUBCUT SCH (09:17)
[2016-11-27] MEDS: FERROUS SULFATE 325 MG TABLET PO SCH (09:25)
[2016-11-27] MEDS: SITAGLIPTIN PHOSPHATE 50 MG TABLET PO SCH (09:27)
[2016-11-27] MEDS: LEVOTHYROXINE SODIUM 0.1 MG TABLET PO SCH (09:27)
[2016-11-27] MEDS: ASPIRIN 81 MG TABLET, CHEWABLE PO SCH (09:28)
[2016-11-27] MEDS: METFORMIN HCL 500 MG TABLET PO SCH (09:28)
[2016-11-27] MEDS: VALSARTAN 160 MG TABLET PO SCH (09:28)
--- NOTE | 2016-11-27 10:59 | PDOC TRANSFER SUMMARY ---
General - Admit/Disc Date/PCP Admission Date/Primary Care Provider: 11/25/16 20:37 Discharge Date: 11/27/16 - Discharge Diagnosis (1) TIA (transient ischemic attack) Is this a current diagnosis for this admission?: Yes (2) Dementia Is this a current diagnosis for this admission?: Yes (3) Dyslipidemia Is this a current diagnosis for this admission?: Yes (4) Hypertension Is this a current diagnosis for this admission?: Yes (5) Hypothyroidism Is this a current diagnosis for this admission?: Yes (6) Diabetes mellitus type 2 in nonobese Is this a current diagnosis for this admission?: Yes - Additional Information Resuscitation Status: Do Not Resuscitate Discharge Diet: As Tolerated, Cardiac Discharge Activity: Supervised Activity Home Medications: Amlodipine Besylate [Norvasc 5 mg Tablet] 5 mg PO QHS 11/01/16 Aspirin [Aspirin 81 mg Chewable Tablet] 81 mg PO DAILY 11/01/16 Cholecalciferol (Vitamin D3) [Vitamin D3] 1,000 mg PO DAILY 11/01/16 Ferrous Sulfate [Feosol 325 mg Tablet] 325 mg PO DAILY 11/01/16 Levothyroxine Sodium [Synthroid 0.1 mg Tablet] 0.1 mg PO QAM 11/01/16 Insulin Detemir [Levemir Flextouch] 10 units SQ DAILY #1 11/05/16 Metoprolol Tartrate [Lopressor 25 mg Tablet] 25 mg PO Q12A #60 tablet 11/05/16 Sitagliptin Phos/Metformin HCl [Janumet 50-1,000 mg Tablet] 1 tab PO BID #60 Acetaminophen [Mapap] 1,000 mg PO Q6 11/25/16 Atorvastatin Calcium [Lipitor 40 mg Tablet] 40 mg PO QHS 11/25/16 Insulin Lispro [Humalog] 0 unit SQ ASDIR PRN 11/25/16 Valsartan [Diovan 160 mg Tablet] 160 mg PO DAILY 11/25/16 History of Present Illness Admission Date/PCP: 11/25/16 20:37 Patient complains of: No complaints History of Present Illness: IGNACIO TABARES is a 86 year old female who is a [facility] resident for dementia, left-sided wrist fracture and falls with a past medical history of type II diabetes, hypertension and hypothyroidism. Patient was in her usual state of health until noted by her son with garbled speech and a left facial droop Accu-Chek was 74 treated with orange juice, some speech deficits persisted she was brought to the emergency room for evaluation where she has returned to baseline, with sinus rhythm, family declining TPA but request observation. Patient is cheerful, wide awake alert oriented 1 denies complaints and believe she is at home. Evaluation of patient's medications include [place]. Hospital Course Hospital Course: The patient was admitted to continuous telemetry unit. Carotid Doppler, and MRI was obtained. Recent outpatient echocardiogram was found to be unremarkable. 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 Physical therapy and occupational therapy were ordered. The patient had episodes of confusion which is associated with her dementia. The patient is on aspirin and statin therapy. The patient can return to rehabilitation. Physical Exam Vital Signs: Temp Pulse Resp BP Pulse Ox 98.6 F 79 18 127/68 H 97 11/27/16 08:02 11/27/16 08:02 11/27/16 08:02 11/27/16 08:02 11/27/16 08:02 Intake & Output 11/25/16 11/26/16 11/27/16 23:59 23:59 23:59 Intake Total 1861 0 Balance 1861 0 Weight 53.6 kg 54 kg General appearance: PRESENT: no acute distress, cooperative, thin Exam: Frail, chronically ill-appearing Head exam: PRESENT: atraumatic, normocephalic Eye exam: PRESENT: conjunctiva pink, EOMI, PERRLA. ABSENT: scleral icterus Ear exam: PRESENT: normal external ear exam Mouth exam: PRESENT: moist, tongue midline Neck exam: ABSENT: carotid bruit, JVD, lymphadenopathy, thyromegaly Respiratory exam: PRESENT: clear to auscultation alicia. ABSENT: rales, rhonchi, wheezes Cardiovascular exam: PRESENT: RRR. ABSENT: diastolic murmur, rubs, systolic murmur Pulses: PRESENT: normal dorsalis pedis pul Vascular exam: PRESENT: normal capillary refill GI/Abdominal exam: PRESENT: normal bowel sounds, soft. ABSENT: distended, guarding, mass, organolmegaly, rebound, tenderness Rectal exam: PRESENT: deferred Extremities exam: PRESENT: full ROM, left arm cast is intact extremities are warm. ABSENT: calf tenderness, clubbing, pedal edema Neurological exam: PRESENT: alert, altered, awake, CN II-XII grossly intact. ABSENT: motor sensory deficit Psychiatric exam: PRESENT: other - DEmented. ABSENT: homicidal ideation, suicidal ideation Skin exam: PRESENT: dry, intact, warm. ABSENT: cyanosis, rash Results Laboratory Results: Labs- Last Values WBC 6.6 10^3/uL (4.0-10.5) 11/26/16 04:26 RBC 4.01 10^6/uL (3.72-5.28) 11/26/16 04:26 Hgb 11.9 g/dL (12.0-15.5) L 11/26/16 04:26 Hct 35.4 % (36.0-47.0) L 11/26/16 04:26 MCV 88 fl (80-97) 11/26/16 04:26 MCH 29.6 pg (27.0-33.4) 11/26/16 04:26 MCHC 33.6 g/dL (32.0-36.0) 11/26/16 04:26 RDW 14.8 % (11.5-14.0) H 11/26/16 04:26 Plt Count 365 10^3/uL (150-450) 11/26/16 04:26 Seg Neutrophils % 58.3 % (42-78) 11/26/16 04:26 Lymphocytes % 29.8 % (13-45) 11/26/16 04:26 Monocytes % 8.5 % (3-13) 11/26/16 04:26 Eosinophils % 2.0 % (0-6) 11/26/16 04:26 Basophils % 1.4 % (0-2) 11/26/16 04:26 Absolute Neutrophils 3.8 10^3/uL (1.7-8.2) 11/26/16 04:26 Absolute Lymphocytes 2.0 10^3/uL (0.5-4.7) 11/26/16 04:26 Absolute Monocytes 0.6 10^3/uL (0.1-1.4) 11/26/16 04:26 Absolute Eosinophils 0.1 10^3/uL (0.0-0.6) 11/26/16 04:26 Absolute Basophils 0.1 10^3/uL (0.0-0.2) 11/26/16 04:26 PT 12.3 SEC (11.4-15.4) 11/25/16 18:40 INR 0.89 11/25/16 18:40 APTT 27.6 SEC (23.5-35.8) 11/25/16 18:40 Sodium 136.7 mmol/L (137-145) L 11/26/16 04:26 Potassium 4.9 mmol/L (3.6-5.0) 11/26/16 04:26 Chloride 102 mmol/L (98-107) 11/26/16 04:26 Carbon Dioxide 22 mmol/L (22-30) 11/26/16 04:26 Anion Gap 13 (5-19) 11/26/16 04:26 BUN 37 mg/dL (7-20) H 11/26/16 04:26 Creatinine 1.12 mg/dL (0.52-1.25) 11/26/16 04:26 Est GFR ( Amer) 56 (>60) L 11/26/16 04:26 Est GFR (Non-Af Amer) 46 (>60) L 11/26/16 04:26 Glucose 104 mg/dL (75-110) 11/26/16 04:26 POC Glucose 184 mg/dL (70-110) H 11/27/16 08:57 Calcium 9.5 mg/dL (8.4-10.2) 11/26/16 04:26 Total Bilirubin 0.5 mg/dL (0.2-1.3) 11/25/16 18:40 Direct Bilirubin 0.0 mg/dL (0.0-0.3) 11/25/16 18:40 AST 22 U/L (14-36) 11/25/16 18:40 ALT 20 U/L (9-52) 11/25/16 18:40 Alkaline Phosphatase 54 U/L (38-126) 11/25/16 18:40 Creatine Kinase 25 U/L (30-135) L 11/25/16 18:40 CK-MB (CK-2) 0.82 ng/mL (<4.55) 11/25/16 18:40 Troponin I < 0.012 ng/mL 11/25/16 18:40 Total Protein 6.4 g/dL (6.3-8.2) 11/25/16 18:40 Albumin 3.8 g/dL (3.5-5.0) 11/25/16 18:40 TSH 2.87 uIU/mL (0.47-4.68) 11/25/16 18:40 Urine Color YELLOW 11/25/16 19:35 Urine Appearance CLEAR 11/25/16 19:35 Urine pH 5.0 (5.0-9.0) 11/25/16 19:35 Ur Specific [place] 1.017 11/25/16 19:35 Urine Protein NEGATIVE mg/dL (NEGATIVE) 11/25/16 19:35 Urine Glucose (UA) NEGATIVE mg/dL (NEGATIVE) 11/25/16 19:35 Urine Ketones NEGATIVE mg/dL (NEGATIVE) 11/25/16 19:35 Urine Blood NEGATIVE (NEGATIVE) 11/25/16 19:35 Urine Nitrite NEGATIVE (NEGATIVE) 11/25/16 19:35 Urine Bilirubin NEGATIVE (NEGATIVE) 11/25/16 19:35 Urine Urobilinogen NEGATIVE mg/dL (<2.0) 11/25/16 19:35 Ur Leukocyte Esterase NEGATIVE (NEGATIVE) 11/25/16 19:35 Urine WBC (Auto) 1 /HPF 11/25/16 19:35 U Hyaline Cast (Auto) 1 /LPF 11/25/16 19:35 Urine Ascorbic Acid NEGATIVE (NEGATIVE) 11/25/16 19:35 11/25/16 19:35 Urine Culture - Final Catheterized Urine NO GROWTH 2 DAYS Impressions: Chest X-Ray 11/25/16 17:48 IMPRESSION: NO ACUTE RADIOGRAPHIC FINDING IN THE CHEST. Head CT 11/25/16 17:48 IMPRESSION: Mild acute bilateral maxillary sinus disease. CHRONIC CHANGES OF ATROPHY AND MICROVASCULAR ISCHEMIA. NO ACUTE PROCESS. Carotid Doppler Study 11/26/16 00:00 IMPRESSION: NO HEMODYNAMICALLY SIGNIFICANT STENOSIS. No significant change since the previous study of 2013. Head MRI 11/26/16 00:00 IMPRESSION: ATROPHY AND CHRONIC MICRO-VASCULAR ISCHEMIC CHANGES. OTHERWISE NORMAL MRI OF THE BRAIN WITHOUT INTRAVENOUS GADOLINIUM CONTRAST. Transfer Plan - Disposition Transfer Plan: The patient will need to be followed up with orthopedics as already scheduled. - Time Spent with Patient Time spent with patient: Less than 30 Minutes Qualifiers PATEINT BEING DISCHARGED WITH ANY OF THE FOLLOWING DIAGNOSIS?: No
[2016-11-27 16:17] VITALS: BP 127/62
== END 2016-11-27 17:07 ==
LOC: ER 17:42 → OBSVTOIN 20:37 → INTOOBSV 20:37 → EH 20:37 → UNDOADMOB 21:06 → EH 11-26 00:41 → 3N 11-26 00:41 → 3S 11-26 05:32
PROVIDERS: ADMIT Internal Medicine; ATTEND Internal Medicine
DX: G45.9 Transient cerebral ischemic attack, unspecified (principal); F03.90 Unspecified dementia, unspecified severity, without behavioral disturbance, psychotic disturbance, mood disturbance, and anxiety; E78.5 Hyperlipidemia, unspecified; I10 Essential (primary) hypertension; E03.9 Hypothyroidism, unspecified; E11.9 Type 2 diabetes mellitus without complications; Z79.4 Long term (current) use of insulin; Z87.891 Personal history of nicotine dependence; E87.5 Hyperkalemia; K59.00 Constipation, unspecified
CPT/HCPCS: 93005; 99285; 36415 ×2; 87086; 82553; 82962 ×3; 82550; 84443; 85025 ×2; 85610; 85730; 80048; 80053; 81001; 84484; 93880; 70551; 71010; 70450; 93010; 97162; 92610; 97167; G0378 ×2; A9270 ×20; J1644 ×2; J3490 ×2; J7030; G8978; G8979; G8996; G8997; G8998; G8987; G8988; G8989; J1815

== ENCOUNTER → 2016-12-31 | Outpatient (CLI) | payer MEDICARE, BC, OTHER | LOC: RAD 13:53 | PROVIDERS: ATTEND Internal Medicine | DX: S09.8XXA Other specified injuries of head, initial encounter (principal); X58.XXXA Exposure to other specified factors, initial encounter | CPT/HCPCS: 70450 ==